=== PATIENT | male | born 1955 | race Caucasian/White ===

== ENCOUNTER 2023-12-30 14:37 | Outpatient (OUT) | payer MEDICARE, SELFPAY ==
[2023-12-30 15:18] LABS: Basophils Absolute Auto 0.1 10^3/uL (0.0-0.1); Eosinophils Absolute Auto 0.2 10^3/uL (0.0-0.7); Eosinophils Percent Auto 2.7 % (0.9-7.0); Hematocrit 42.7 % (42.0-54.0); Hemoglobin 14.9 g/dL (14.0-18.0); Immature Granulocytes Abs Auto 0.02 10^3/uL (0.00-0.03); Immature Granulocytes Pct Auto 0.3 % (0.0-0.5); Lymphocytes Absolute Auto 1.9 10^3/uL (1.2-3.8); Lymphocytes Percent Auto 29.6 % (20.5-60.0); Mean Corpuscular HGB Conc 34.9 g/dL (29.9-35.2); Mean Corpuscular Hemoglobin 29.5 pg (25.9-34.0); Mean Corpuscular Volume 84.6 fL (80.0-94.0); Mean Platelet Volume 11.2 fL (9.5-13.5); Monocytes Absolute Auto 0.5 10^3/uL (0.3-0.8); Monocytes Percent Auto 7.8 % (1.7-12.0); Neutrophils Absolute Auto 3.7 10^3/uL (1.4-6.5); Neutrophils Percent Auto 58.6 % (43.0-75.0); Platelet Count 218 10^3/uL (150-450); Red Blood Count 5.05 10^6/uL (4.70-6.10); Red Cell Distribution Width 12.9 % (11.0-15.0); White Blood Count 6.3 10^3/uL (4.0-11.0)
[2023-12-30 16:17] LABS: Alanine Aminotransferase 30 U/L (16-63); Albumin Level 3.9 g/dL (3.4-5.0); Alkaline Phosphatase 82 U/L (46-116); Anion Gap 12.3; Aspartate Amino Transferase 22 U/L (15-37); BUN Creatinine Ratio 21.5; Bilirubin Total 0.8 mg/dL (0.2-1.0); Calcium 9.4 mg/dL (8.5-10.1); Carbon Dioxide 26.4 mmol/L (21.0-32.0); Chloride 104 mmol/L (98-107); Chol HDL Ratio 3.6; Cholesterol 175 mg/dL (<=200); Estimated GFR (African America >60 (>=60); Estimated GFR (Non-African Ame >60 (>=60); Free T3 2.91 pg/mL (2.18-3.98); Globulin 3.9 g/dL; Glucose 103 mg/dL (74-106); HDL Cholesterol 48 mg/dL (40-60); Potassium 3.7 mmol/L (3.5-5.1); Sodium 139 mmol/L (136-145); Thyroid Stimulating Hormone 0.634 uIU/mL (0.358-3.740); Total Protein 7.8 g/dL (6.4-8.2); Triglycerides 110 mg/dL (<=150)
[2023-12-30 16:48] LABS: Free T4 1.27 ng/dL (0.76-1.46)
== END 2023-12-30 14:38 | disposition home or self-care (01) ==
LOC: LAB 14:41
PROVIDERS: PCP Nurse Practitioner; Visit Provider Nurse Practitioner
DX: E78.2 Mixed hyperlipidemia (principal); K21.9 Gastro-esophageal reflux disease without esophagitis; I10 Essential (primary) hypertension; E03.9 Hypothyroidism, unspecified
CPT/HCPCS: 36415; 80053; 80061; 82043; 82570; 84439; 84443; 84481; 85025

== ENCOUNTER 2023-12-31 15:05 | Outpatient (REF) | payer MEDICARE, SELFPAY ==
[2023-12-31 15:17] LABS: Bilirubin Urine NEGATIVE (NEGATIVE); Blood Urine NEGATIVE (NEGATIVE); Clarity Urine CLEAR (CLEAR); Color Urine YELLOW (YELLOW); Glucose Urine UA NEGATIVE (NEGATIVE); Ketones Urine NEGATIVE (NEGATIVE); Leukocyte Esterase Urine TRACE (NEGATIVE); Nitrite Urine NEGATIVE (NEGATIVE); Protein Urine NEGATIVE (NEG/TRACE); Specific Gravity Urine >=1.030 (1.005-1.025)
[2023-12-31 15:21] LABS: Urine Microscopic Indicated YES
[2023-12-31 15:23] LABS: Bacteria Urine TRACE #/HPF (NONE SEEN); Mucus Urine LARGE (NONE SEEN); RBC Urine NONE SEEN #/HPF (0-2); Squamous Epithelial Cell Urine FEW #/LPF (NONE/RARE)
[2023-12-31 15:24] LABS: Urine Culture Indicated YES
[2023-12-31 15:25] LABS: Creatinine Urine Random 236.72 mg/dL (20.00-300.00); Microalbum Creatinine Ratio Ur 7.1 mg/g (0.0-29.9); Microalbumin Urine Random 1.7 mg/dL (<=30.0)
== END 2023-12-31 15:06 | disposition home or self-care (01) ==
LOC: LAB 15:05
PROVIDERS: PCP Nurse Practitioner; Visit Provider Nurse Practitioner
DX: E78.2 Mixed hyperlipidemia (principal); K21.9 Gastro-esophageal reflux disease without esophagitis; I10 Essential (primary) hypertension; E03.9 Hypothyroidism, unspecified; R82.998 Other abnormal findings in urine
CPT/HCPCS: 81001; 82043; 82570; 87086

== ENCOUNTER 2025-01-21 14:48 | Outpatient (OUT) | payer MEDICARE, MEDICAID, SELFPAY ==
--- OUTSIDE RECORDS SUMMARY | 2025-01-21 14:53 | XMS_ITS | Clinical Summary ---
Author Organization [employer] tem Address [id number] [address] [place] [address] Care Team Providers Care All Round Logger Name Role Phone GracecalindanielJoie lowe Waleska GRANGER-CENTERLESS GRINDER OPERATOR Primary Care Provider Allergies Active Allergy Reactions Criticality Noted Date Comments Milk Containing Products (Dairy) Medications levothyroxine (SYNTHROID, LEVOTHROID) 50 MCG tablet 10/18/2016 Active pantoprazole (PROTONIX) 40 mg EC tablet 10/18/2016 Active pravastatin (PRAVACHOL) 20 mg tablet 10/18/2016 Active valsartan-hydrochl orothiazide (DIOVAN-HCT) 160-12.5 mg per tablet 10/18/2016 Active naproxen (NAPROSYN) 375 mg tablet 07/20/2019 Active meloxicam (MOBIC) 15 mg tablet 09/09/2019 Active Active Problems Problem Noted Date Diagnosed Date Elevated PSA 11/06/2016 Overview (06/09/2024): Elevated PSA with negative biopsy 2012 (PSA 4.77) 3 T prostate MRI 05/04 with PI-RADS 2 lesion (PSA 6.3) - vol 45 cc PSA stable, no nodules. Recheck next year Family History Medical History Relation Name Comments No Known Problems Mother Relation Name Status Comments Mother Alive Social History Tobacco Use Types Packs/Day Years Used Date Smoking Tobacco: Former Smokeless Tobacco: Never Tobacco Cessation:Counseling Given: Not Answered Alcohol Use Standard Drinks/Week Comments No 0 (1 standard drink = 0.6 oz pur e alcohol) Childcare Answer Date Recorded Childcare Unknown 01/19/2019 Employment Answer Date Recorded Employment Unknown 01/19/2019 Hunger Screening Answer Date Recorded Within the past 12 months we worried whether our food would run out before we got money to buy more. Never True 06/09/2024 Within the past 12 months th e food we bought just didn't last and we didn't have money to get more. Never True 06/09/2024 Purpose - Life Answer Date Recorded Purpose and direction in life Unknown Sex and Gender Information Value Date Recorded Sex Assigned at Not on file Legal Sex Male 9:23 AM EST Gender Identity Not on file Sexual Orientation Not on file Last Filed Vital Signs Vital Sign Reading Time Taken Comments Blood Pressure 143/98 06/09/2024 10:43 AM EDT Pulse 71 06/09/2024 10:43 AM EDT Temperature - - Respiratory Rate 18 05/09/2021 11:36 AM EDT Oxygen Saturation - - Inhaled Oxygen Concentration - - Weight 74.8 kg (165 lb) 06/09/2024 10:43 AM EDT Height 177.8 cm (5' 10 ) 06/09/2024 10:43 AM EDT Body Mass Index 23.68 06/09/2024 10:43 AM EDT Plan of Treatment Upcoming Encounters Date Type Department Care Team (Late st Contact Info) Description 06/08/2025 1:15 PM EDT Office Visit [facility] [address] [place] [address] [place] [address] Rustam Youssef MD [address] [place] [address] [id number] Health Maintenance Due Date Last Done Comments Depression Screening 1968 DTaP,Tdap and Td Vaccines (1 - Tdap) 1975 Zoster (Shingles) Vaccine (1 of 2) 2006 Abdominal Aortic Aneurysm (A AA) Screen 2021 Fall Risk Screening 2021 Influenza Vaccine 04/19/2025 06/02/2022, , 06/01/2019, Additional history exists Adult BMI Screening 06/09/2025 06/09/2024 Tobacco Screening 06/09/2025 06/09/2024 Medical Devices Not on file Insurance [facility] MEDICAID [place] Care Teams All Round Logger Relationship Specialty Start Date End Date Joie Lane, PHYSICIAN PRACTICE MANAGER-CENTERLESS GRINDER OPERATOR PCP - General Nurse Practitioner 11/26/17
--- OUTSIDE RECORDS SUMMARY | 2025-01-21 14:54 | XMS_ITS | Encounter Summary ---
Author Organization [employer] tem Address [facility] [id number] [address] [place] [address] Care Team Providers Care Workers Compensation Claims Specialist Name Role Phone GraceJoie mann Waleska HAYESN-DATA MINING ANALYST Primary Care Provider Encounter Details Date Type Department Care Team (Late Contact Info) Description 05/12/2021 Abstract [facility] [address] [place] [phone] External, Scanning Provider Social History Tobacco Use Types Packs/Day Years Used Date Smoking Tobacco: Former Smokeless Tobacco: Never Alcohol Use Standard Drinks/Week Comments No 0 (1 standard drink = 0.6 oz pur e alcohol) Childcare Answer Date Recorded Childcare Unknown 01/19/2019 Employment Answer Date Recorded Employment Unknown 01/19/2019 Purpose - Life Answer Date Recorded Purpose and direction in life Unknown Sex and Gender Information Value Date Recorded Sex Assigned at Not on file Legal Sex Male 9:23 AM EST Gender Identity Not on file Sexual Orientation Not on file COVID-19 Exposure Response Date Recorded In the last month, have you been in contact with someone who was confirmed or suspected to have Coronavirus / COVID-19? No / Unsure 05/09/2021 11:30 AM EDT documented as of this encounter Plan of Treatment Upcoming Encounters Date Type Department Care Team (Late Contact Info) Description 06/08/2025 1:15 PM EDT Office Visit [facility] [address] [place] [address] [place] [address] [address] Rustam Youssef MD [address] [place] [id number] documented as of this encounter Procedures Procedure Name Priority Date/Time Associated Diagnosis Comments PROSTATIC SPECIFIC ANTIGEN, DIAGNOSTIC Routine 05/04/2021 documented in this encounter Results * Prostatic specific antigen, diagnostic (05/04/2021) Psa 5.49 MANUALLY TRANSCRIBED RESULTS 05/04/2021 us Scanning Provider External LAB BLOOD ORDERABLES Final Result MANUALLY TRANSCRIBED RESULTS documented in this encounter Visit Diagnoses Not on filedocumented in this encounter Care Teams Workers Compensation Claims Specialist Relationship Specialty Start Date End Date Joie Lane, TELLER HEAD-DATA MINING ANALYST PCP - General Nurse Practitioner 11/26/17 documented as of this encounter
--- OUTSIDE RECORDS SUMMARY | 2025-01-21 14:54 | XMS_ITS | Encounter Summary ---
Author Organization [employer] tem Address [facility] [id number] [address] [place] [address] Care Team Providers Care System Planning Engineer Name Role Phone Joie Lane CREDIT RISK ASSOCIATE-ROAD TESTER Primary Care Provider Encounter Details Date Type Department Care Team (Late Contact Info) Description 05/12/2021 Orders Only [facility] [address] [place] [phone] Joie Negron Elevated PSA Social History Tobacco Use Types Packs/Day Years [...] Office Visit [facility] [address] [place] [address] [address] [facility] [place] [address] Rustam Youssef MD [address] [place] [address] documented as of this encounter Visit Diagnoses Diagnosis Elevated PSA Elevated prostate specific antigen (PSA) documented in this encounter Care Teams System Planning Engineer Relationship Specialty Start Date End Date Joie Lane, CREDIT RISK ASSOCIATE-ROAD TESTER PCP - General Nurse Practitioner 11/26/17 documented as of this encounter
--- OUTSIDE RECORDS SUMMARY | 2025-01-21 14:54 | XMS_ITS | Encounter Summary ---
Author Organization [employer] tem Address [facility] [id number] [address] [place] [address] Care Team Providers Care Electrotyper Name Role Phone GraceJoie mann Waleska METAL BUILDING ASSEMBLER-ORTHOPEDIC BRACE MAKER Primary Care Provider Encounter Details Date Type Department Care Team (Late st Contact Info) Description 11/29/2022 Abstract [facility] [place] [phone] External, Scanning Provider Social History Tobacco Use [...] on file Sexual Orientation Not on file documented as of this encounter Plan of Treatment Upcoming Encounters Date Type Department Care Team (Late st Contact Info) Description 06/08/2025 1:15 PM EDT Office Visit [facility] [address] [place] [address] [place] [address] [phone] Rustam Youssef MD [address] [place] [address] documented as of this encounter Procedures Procedure Name Priority Date/Time Associated Diagnosis Comments MULTIPLE LABS Routine 11/13/2022 documented in this encounter Results * Multiple labs (11/13/2022) 11/13/2022 us Scanning Provider External AL IMAGING Final Result MANUALLY TRANSCRIBED RESULTS documented in this encounter Visit Diagnoses Not on filedocumented in this encounter Care Teams Electrotyper Relationship Specialty Start Date End Date Joie Lane, METAL BUILDING ASSEMBLER-ORTHOPEDIC BRACE MAKER PCP - General Nurse Practitioner 11/26/17 documented as of this encounter
--- OUTSIDE RECORDS SUMMARY | 2025-01-21 14:54 | XMS_ITS | Clinical Summary ---
Author Organization [facility] Address [address] [place] [address] Care Team Providers Care Picture Booker Name Role Phone Joie Lane NP Unavailable [phone] Azael Skinner MD Primary Care Provider [phone] NP Unavailable [phone] NP Unavailable [phone] Allergies Active Allergy Reactions Criticality Noted Date Comments Milk-Related Compounds GI intolerance Medium 4 Dairy products-nausea, vomiting, and diarrhea Other 11/12/2016 Medications pantoprazole (ProtoNix) 40 MG EC tabletIndications :Gastroesophageal reflux disease without esophagitis Take 1 tablet (40 mg) by mouth Daily as needed (acid reflux) 90 tablet 1 07/06/20 24 Active levothyroxine (Synthroid, Levoxyl) 50 MCG tabletIndications :Hypothyroidism, unspecified,Hypot hyroidism (CMS/HCC) Take 1 tablet (50 mcg) by mouth in the morning. Take before meals. 90 tablet 01/05/20 25 025 Active valsartan-hydroCH LOROthiazide (Diovan-HCT) 160-12.5 MG tabletIndications :Essential (primary) hypertension (CMS/HCC),Essenti al hypertension (CMS/HCC) Take 1 tablet by mouth Daily 90 tablet 1 01/05/20 25 025 Active pravastatin (Pravachol) 20 MG tabletIndications :Mixed hyperlipidemia (CMS/HCC) Take 1 tablet (20 mg) by mouth at bedtime 90 tablet 1 01/05/20 25 025 Active meloxicam (Mobic) 15 MG tabletIndications :Pain in left knee,Pain in unspecified knee Take 1 tablet (15 mg) by mouth Daily as needed for moderate pain 90 tablet 01/05/20 25 025 Active levothyroxine (Synthroid, Levoxyl) 50 MCG tabletIndications :Hypothyroidism, unspecified,Hypot hyroidism (CMS/HCC) Take 1 tablet (50 mcg) by mouth in the morning. Take before meals. 90 tablet 1 07/06/20 24 025 Discontinued pravastatin (Pravachol) 20 MG tabletIndications :Mixed hyperlipidemia (CMS/HCC) Take 1 tablet (20 mg) by mouth at bedtime 90 tablet 1 07/06/20 24 025 Discontinued(R eorder) valsartan-hydroCH LOROthiazide (Diovan-HCT) 160-12.5 MG tabletIndications :Essential (primary) hypertension (CMS/HCC),Essenti al hypertension (CMS/HCC) Take 1 tablet by mouth Daily 90 tablet 1 07/06/20 24 025 Discontinued(R eorder) meloxicam (Mobic) 15 MG tabletIndications :Pain in left knee,Pain in unspecified knee Take 1 tablet (15 mg) by mouth Daily as needed for moderate pain 90 tablet 07/13/20 025 Discontinued meloxicam (Mobic) 15 MG tabletIndications :Pain in left knee,Pain in unspecified knee Take 1 tablet (15 mg) by mouth Daily as needed for moderate pain 90 tablet 12/31/19 025 Discontinued(R eorder) Active Problems Problem Noted Date Diagnosed Date Encounter for subsequent [facility] visit (AWV) in Medicare patient 07/06/2024 Assessment & Plan (07/06/2024 3:01 PM EST): Reviewed Ht/Wt/BMI Recommend eye exam yearly Recommend dental exams twice a year Balance work/leisure activities Exercises is recommended most days of the week (appropriate as chronic conditions allow) Follow up yearly and prn Hand out on HCPOA and Living will Essential hypertension, benign 12/30/2023 Assessment & Plan (01/04/2025 7:26 AM EDT): Please check blood pressure daily and record DASH diet Limit caffeine Take medication as directed Contact office if chest pain, pressure, dizziness, shortness of breath, swelling legs Recommend slow position changes Current meds; valsartan/hydrochlorothiazide Assessment & Plan (07/06/2024 7:22 AM EST): Please check blood pressure daily and record DASH diet Limit caffeine Take medication as directed Contact office if chest pain, pressure, dizziness, shortness of breath, swelling legs Recommend slow position changes Assessment & Plan (12/30/2023 2:26 PM EDT): Stable, no changes in doses Check labs Fatigue 12/30/2023 Gastroesophageal reflux disease without esophagi tis 12/30/2023 Assessment & Plan (01/04/2025 7:27 AM EDT): Recommendations: freq small meals, nothing to eat or drink at least 2 hours prior to bed, limit caffeine, alcohol, as well as spicy foods Meds to limit or avoid if possible: NSAIDS Elevate HOB if possible Current med; pantoprazole Can try to take every other day if tolerates Assessment & Plan (07/06/2024 7:23 AM EST): Recommendations: freq small meals, nothing to eat or drink at least 2 hours prior to bed, limit caffeine, alcohol, as well as spicy foods Meds to limit or avoid if possible: NSAIDS Elevate HOB if possible Continue PPI Assessment & Plan (12/30/2023 2:26 PM EDT): Uses prn PPI Mixed hyperlipidemia 12/30/2023 Assessment & Plan (01/04/2025 7:28 AM EDT): Continue statin therapy Check labs yearly and prn dose changes Assessment & Plan (07/06/2024 2:53 PM EST): Continue statin Primary hypothyroidism 12/30/2023 Assessment & Plan (01/04/2025 7:27 AM EDT): Current meds: levothyroxine Check labs yearly and prn dose changes or changes in sxs Assessment & Plan (07/06/2024 3:05 PM EST): Has noted some sl fatigue, nothing acute, I did offer to order thyroid labs, he decline, however if he changes his mind he can contact the office. Continue with thyroid medications and periodic lab monitoring Assessment & Plan (12/30/2023 2:26 PM EDT): Continue with levo, check labs to ensure current dose is adequate Colon cancer screening 12/30/2023 Elevated PSA 11/06/2016 Overview (12/30/2023): Elevated PSA with negative biopsy 2012 (PSA 4.77) 3 T prostate MRI 05/04 with PI-RADS 2 lesion (PSA 6.3) - vol 45 cc 11/11/18: PSA 5.56, benign exam. Given his prior workup that was negative, we are going to recheck his psa in the short term to see if this is his typical fluctuation vs a new rise. 09/15/19: Plan recheck prostate health index today. 04/26/20: PSA 4.08. His PSA has fluctuated and currently better. Normal for his age still. Plan recheck 1 year 05/09/21: PSA stable at 5.49. Normal exam. Recheck 1 year 11/07: PSA 4.8 11/08 PSA 4.9 Normal exam. Recheck 1 year Assessment & Plan (07/06/2024 7:23 AM EST): Continue with Urology Encounters Date Type Department Care Team Description 01/04/2025 1:40 PM EDT Office Visit [facility] [address] [place] [address] NP Essential hypertension, benign (CMS/HCC) (Primary Dx); Gastroesophageal reflux disease without esophagitis; Primary hypothyroidism (CMS/HCC); Mixed hyperlipidemia (CMS/HCC); Essential (primary) hypertension (CMS/HCC); Essential hypertension (CMS/HCC); Hypothyroidism, unspecified; Hypothyroidism (CMS/HCC); Pain in left knee; Pain in unspecified knee 01/02/2025 Refill [facility] [address] [place] [address] NP Hypothyroidism, unspecified; Hypothyroidism ([facility]/HCC) 12/30/2024 Refill [facility] [address] [place] [address] NP Pain in left knee; Pain in unspecified knee from Last 3 Months Immunizations Immunization Administration Dates Next Due Influenza, High Dose Seasonal, Preservative Free 05/04/2024 Influenza, High-dose Seasona l, Quadrivalent, Preservative Free 06/02/2022 Influenza, injectable, MDCK, preservative free, quadrivalent 2018 Influenza, injectable, MDCK, quadrivalent 2019 Influenza, injectable, quadrivalent, preservativ e free 06/01/2019 Pneumococcal Conjugate PCV 13 06/04/2020 Pneumococcal Polysaccharide PPSV23 10/13/2022 Family History Medical History Relation Name Comments Lung cancer Father Lung cancer Mother Relation Name Status Comments Father Mother Social History Tobacco Use Types Packs/Day Years Used Date Smoking Tobacco: Never Smokeless Tobacco: Never Tobacco Cessation:Counseling Given: Not Answered Alcohol Use Standard Drinks/Week Comments Never 0 (1 standard drink = 0.6 oz pur e alcohol) no caffine Social Connection and Isolat ion Panel [NHANES] Answer Date Recorded Frequency of Communication w ith Friends and Family Not on file 12/24/2023 How often do you get togethe r with friends or relatives? More than three times a week 12/24/2023 How often do you attend chur ch or oriental orthodox services? More than 4 times per year 12/24/2023 Do you belong to any clubs o r organizations such as baptist groups, unions, fraternal or athletic groups, or school groups? No 12/24/2023 How often do you attend meet ings of the clubs or organizations you belong to? Patient declined 12/24/2023 Are you , , di vorced, , never , or living with a partner? Never 12/24/2023 AUDIT-C Answer Date Recorded Q1: How often do you have a drink containing alc ohol? Never 12/24/2023 Average Number of Drinks Not on file 024 Q3: How often do you have si x or more drinks on one occasion? Never 12/24/2023 PHQ-2 Answer Date Recorded Patient Health Questionnaire-2 Score 0 07/06/2024 [facility] - Occupational Stress Questionnaire Answer Date Recorded Do you feel stress - tense, restless, nervous, or anxious, or unable to sleep at night because your mind is troubled all the time - these days? Patient declined 12/24/2023 Exercise Vital Sign Answer Date Recorde d On average, how many days pe r week do you engage in moderate to strenuous exercise (like a brisk walk)? 6 days Minutes of Exercise per Session Not on file 12/24/2023 Hunger Vital Sign Answer Date Recorded Within the past 12 months, y ou worried that your food would run out before you got the money to buy more. Never true 12/24/19 24 Within the past 12 months, t he food you bought just didn't last and you didn't have money to get more. Never true 12/24/2023 PRAPARE - Transportation Answer Date Re corded In the past 12 months, has l ack of transportation kept you from medical appointments or from getting medications? No 02/2024 In the past 12 months, has l ack of transportation kept you from meetings, work, or from getting things needed for daily living? No 12/24/2023 Housing Stability Vital Sign Answer Simon e Recorded In the last 12 months, was t here a time when you were not able to pay the mortgage or rent on time? No 12/24/2023 Number of Places Lived in the Last Year Not on f ile 12/24/2023 In the last 12 months, was t here a time when you did not have a steady place to sleep or slept in a correction (including now)? No 12/24/2023 Sex and Gender Information Value Date Recorded Sex Assigned at Not on file Legal Sex Male 11:17 AM EDT Gender Identity Not on file Sexual Orientation Not on file Last Filed Vital Signs Vital Sign Reading Time Taken Comments Blood Pressure 108/76 01/04/2025 1:38 PM EDT Pulse 72 01/04/2025 1:38 PM EDT Temperature 36.7 C (98.1 F) 01/04/2025 1:38 PM EDT Respiratory Rate 18 01/04/2025 1:38 PM EDT Oxygen Saturation 97% 01/04/2025 1:38 PM EDT Inhaled Oxygen Concentration - - Weight 77.2 kg (170 lb 3.2 oz) 01/04/2025 1:38 P M EDT Height 177.8 cm (5' 10 ) 07/06/2024 2:26 PM EST Body Mass Index 24.42 07/06/2024 2:26 PM EST Plan of Treatment Upcoming Encounters Date Type Department Care Team (Late st Contact Info) Description 07/07/2025 4:30 PM EST Office Visit [facility] [address] [place] [address] NP [address] [place] [address] Health Maintenance Due Date Last Done Comments CT Colonography 1955 Colonoscopy 1955 FIT 1956 FOBT 1955 Sigmoidoscopy 1955 Medicare Annual Wellness (AWV) 07/06/2025 07/06/2024 Colorectal Cancer Screening 01/03/2027 FIT-DNA 01/03/2027 01/04/2024 Pneumococcal Vaccine: 65+ Years Completed , 06/04/2020 Influenza Vaccine Completed 05/04/2024, , 05/14/2020, Additional history exists Procedures Procedure Name Priority Date/Time Associated Diagnosis Comments LAB COLOGUARD COLON CANCER SCREEN Routine 01/04/2024 2:40 PM EDT Colon cancer screening from Last 3 Months or Most Recently Relevant to Health Maintenance Results * Cologuard?? colon cancer screening (01/04/2024 2:40 PM EDT) NONINV COLON CA DNA+OCC BLD SCRN STL-IMP Negative Negative 01/13/2024 7:35 PM EDT [facility] (CLIA #:[id number]) Comment: NEGATIVE TEST RESULT. A negative Cologuard result indicates a low likelihood that a colorectal cancer (CRC) or advanced adenoma (adenomatous polyps with more advanced pre-malignant features) is present. The chance that a person with a negative Cologuard test has a colorectal cancer is less than 1 in 1500 (negative predictive value >99.9%) or has an advanced adenoma is less than 5.3% (negative predictive value 94.7%). These data are based on a prospective cross-sectional study of 10,000 individuals at average risk for colorectal cancer who were screened with both Cologuard and colonoscopy. (Dena Durand al, N Engl J Med 2014;370(14):1282-1291) The normal value (reference range) for this assay is negative. COLOGUARD RE-SCREENING RECOMMENDATION: Periodic colorectal cancer screening is an important part of preventive healthcare for asymptomatic individuals at average risk for colorectal cancer. Following a negative Cologuard result, the [place] Cancer Society and U.S. Multi-Society Task Force screening guidelines recommend a Cologuard re-screening interval of 3 years. References: [place] Cancer Society Guideline for Colorectal Cancer Screening: https://www.cancer.org/cancer/bsdik-jcaauw-xjatje/xtsobthkm-nshynmukh-htjnnff/ac s-rec ommendations.html.; Erick DK, Delvin CR, Jarrett GaleanoK, Colorectal Cancer Screening: Recommendations for Physicians and Patients from the U.S. Multi-Society Task Force on Colorectal Cancer Screening , Am J Gastroenterology 2017; 112:3668-7596. TEST DESCRIPTION: Composite algorithmic analysis of stool DNA-biomarkers with hemoglobin immunoassay. Quantitative values of individual biomarkers are not reportable and are not associated with individual biomarker result reference ranges. Cologuard is intended for colorectal cancer screening of adults of either sex, 45 years or older, who are at average-risk for colorectal cancer (CRC). Cologuard has been approved for use by the U.S. FDA. The performance of Cologuard was established in a cross sectional study of average-risk adults aged 50-84. Cologuard performance in patients ages 45 to 49 years was estimated by sub-group analysis of near-age groups. Colonoscopies performed for a positive result may find as the most clinically significant lesion: colorectal cancer [4.0%], advanced adenoma (including sessile serrated polyps greater than or equal to 1cm diameter) [20%] or non- advanced adenoma [31%]; or no colorectal neoplasia [45%]. These estimates are derived from a prospective cross-sectional screening study of 10,000 individuals at average risk for colorectal cancer who were screened with both Cologuard and colonoscopy. (Dena Durand al, N Engl J Med 2014;370(14):1691-1481.) Cologuard may produce a false negative or false positive result (no colorectal cancer or precancerous polyp present at colonoscopy follow up). A negative Cologuard test result does not guarantee the absence of CRC or advanced adenoma (pre-cancer). The current Cologuard screening interval is every 3 years. ([place] Cancer Society and U.S. Multi-Society Task Force). Cologuard performance data in a 10,000 patient pivotal study using colonoscopy as the reference method can be accessed at the following location: www.[employer].com/results. Additional description of the Cologuard test process, warnings and precautions can be found at www.[employer].com. Stool specimen (specimen) 01/04/2024 2:40 PM EDT 01/07/2024 11:[address] MANAGER PRODUCT SUPPORT LAB MOLECULAR DIAGNOSTICS ORDER MARY Final Result .[facility] (CLIA #:[id number]) [address] [id number], [facility] (CLIA #:[id number]) [address] [id number] from Last 3 Months or Most Recently Relevant to Health Maintenance Insurance MEDICAID [place] MEDICARE ADVANTAGE Care Teams Picture Booker Relationship Specialty Start Date End Date Azael Skinner MD [address] [place] [phone] PCP - General Family Medicine 01/14/[address] NP [address] [place] [address] PCP - Obi JON 08/19/[address] NP [address] [place] [address] Nurse Practitioner Family Medicine 08/19/[address] NP [address] [place] [address] Nurse Practitioner Family Medicine 01/14/24
--- OUTSIDE RECORDS SUMMARY | 2025-01-21 14:54 | XMS_ITS | Encounter Summary ---
Author Organization [facility] Address [id number] [address] [place] [address] Care Team Providers Care Cattle Examiner Name Role Phone GraceJoie mann Waleska DIRECTOR OF RESIDENCE [employer]-GREEN MARKETING SPECIALIST Primary Care Provider Encounter Details Date Type Department Care Team (Late Contact Info) Description 05/03/2023 Telephone [facility] [address] [place] [address] Medina Barrera, JEFFERY Social History Tobacco Use Types Packs/Day Years [...] got money to buy more. Never True 05/07/2023 Within the past 12 months th e food we bought just didn't last and we didn't have money to get more. Never True 05/07/2023 Purpose - Life Answer Date Recorded Purpose and direction in life Unknown Sex and Gender Information Value Date Recorded Sex Assigned at Not on file Legal Sex Male 9:23 AM EST Gender Identity Not on file Sexual Orientation Not on file documented as of this encounter Plan of Treatment Upcoming Encounters Date Type Department Care Team ([facility] Contact Info) Description 06/08/2025 1:15 PM EDT Office Visit [facility] [address] [place] [address] [place] [address] [place] [address] Rustam Youssef MD [facility] [place] [address] documented as of this encounter Visit Diagnoses Not on filedocumented in this encounter Care Teams Cattle Examiner Relationship Specialty Start Date End Date Joie Lane, DIRECTOR OF [employer]ID[employer]EN MARKETING SPECIALIST PCP - General Nurse Practitioner 11/26/17 documented as of this encounter
--- OUTSIDE RECORDS SUMMARY | 2025-01-21 14:54 | XMS_ITS | Encounter Summary ---
Author Organization [facility] Address [address] [place] [address] Care Team Providers Care Clockmaker Apprentice Name Role Phone Joie Lane MUSIC ARRANGER Unavailable [phone] Azael Skinner MD Primary Care Provider Joie Lane MUSIC ARRANGER Unavailable [phone] NP Unavailable [phone] Reason for Visit * Reason Comments Med Refill Encounter Details Date Type Department Care Team (Late st Contact Info) Description 05/04/2024 Refill [facility] [address] [place] [address] MUSIC ARRANGER [address] [place] [address] Gastroesophageal reflux disease without esophagitis Social History Tobacco Use Types Packs/Day Years Used Date Smoking Tobacco: Never Smokeless Tobacco: Never Alcohol Use Standard Drinks/Week Comments Never 0 [...] often do you attend chur ch or cheondoism services? More than 4 times per year 12/24/2023 Do you belong to any clubs o r organizations such as mormonism groups, unions, fraternal or athletic groups, or [...] Date Recorded Patient Health Questionnaire-2 Score 0 12/30/2023 [facility] - Occupational Stress Questionnaire Answer Date Recorded [...] place to sleep or slept in a jail (including now)? No 12/24/2023 Sex and Gender Information Value Date Recorded Sex Assigned at Not on file Legal Sex Male 11:17 AM EDT Gender Identity Not on file Sexual Orientation Not on file documented as of this encounter Plan of Treatment Upcoming Encounters Date Type Department Care Team (Late st Contact Info) Description 07/07/2025 4:30 PM EST Office Visit [facility] [address] [place] [phone] Joie [address] NP [address] [place] [address] documented as of this encounter Visit Diagnoses Diagnosis Gastroesophageal reflux disease without esophagitis Esophageal reflux documented in this encounter Care Teams Clockmaker Apprentice Relationship Specialty Start Date End Date Azael Skinner MD [address] [place] [address] PCP - General Family Medicine 01/14/[address] NP [address] [place] [phone] PCP - Obi JON 08/19/[address] NP [address] [place] [address] Nurse Practitioner Family Medicine 08/19/[address] NP [address] [place] [address] Nurse Practitioner Family Medicine 01/14/24 documented as of this encounter
[2025-01-21 15:22] LABS: Basophils Percent Auto 0.7 % (0.2-2.0); Eosinophils Absolute Auto 0.2 10^3/uL (0.0-0.7); Eosinophils Percent Auto 2.6 % (0.9-7.0); Hematocrit 42.9 % (42.0-54.0); Immature Granulocytes Abs Auto 0.01 10^3/uL (0.00-0.03); Immature Granulocytes Pct Auto 0.2 % (0.0-0.5); Lymphocytes Absolute Auto 1.8 10^3/uL (1.2-3.8); Lymphocytes Percent Auto 30.3 % (20.5-60.0); Mean Corpuscular Hemoglobin 29.5 pg (25.9-34.0); Mean Corpuscular Volume 84.3 fL (80.0-94.0); Mean Platelet Volume 10.4 fL (9.5-13.5); Monocytes Absolute Auto 0.7 10^3/uL (0.3-0.8); Monocytes Percent Auto 11.4 % (1.7-12.0); Neutrophils Absolute Auto 3.2 10^3/uL (1.4-6.5); Neutrophils Percent Auto 54.8 % (43.0-75.0); Platelet Count 205 10^3/uL (150-450); Red Blood Count 5.09 10^6/uL (4.70-6.10); White Blood Count 5.8 10^3/uL (4.0-11.0)
[2025-01-21 16:12] LABS: Alanine Aminotransferase 34 U/L (16-63); Albumin Level 3.7 g/dL (3.4-5.0); Alkaline Phosphatase 106 U/L (46-116); Anion Gap 8.9; Aspartate Amino Transferase 26 U/L (15-37); Bilirubin Total 0.9 mg/dL (0.2-1.0); Calcium 9.4 mg/dL (8.5-10.1); Carbon Dioxide 31.7 mmol/L (21.0-32.0); Chloride 103 mmol/L (98-107); Chol HDL Ratio 3.6; Cholesterol 174 mg/dL (<=200); Estimated GFR (African America >60 (>=60 mL/min/1.73m^2); Estimated GFR (Non-African Ame >60 (>=60 mL/min/1.73m^2); Free T3 2.68 pg/mL (2.18-3.98); Globulin 3.8 g/dL; Glucose 96 mg/dL (74-106); HDL Cholesterol 48 mg/dL (40-60); LDL Cholesterol Calculated 103.2 mg/dL; Potassium 3.6 mmol/L (3.5-5.1); Sodium 140 mmol/L (136-145); Thyroid Stimulating Hormone 0.547 uIU/mL (0.358-3.740); Total Protein 7.5 g/dL (6.4-8.2); Triglycerides 114 mg/dL (<=150); VLDL CHOLESTEROL 22.8 mg/dL
== END 2025-01-21 14:49 | disposition home or self-care (01) ==
PROVIDERS: PCP Nurse Practitioner; Visit Provider Nurse Practitioner
DX: E03.9 Hypothyroidism, unspecified (principal); I10 Essential (primary) hypertension; K21.9 Gastro-esophageal reflux disease without esophagitis; E78.2 Mixed hyperlipidemia
CPT/HCPCS: 36415; 80053; 80061; 82043; 82570; 84439; 84443; 84481; 85025

== ENCOUNTER 2025-01-22 08:28 | Outpatient (REF) | payer MEDICARE, MEDICAID, SELFPAY ==
--- OUTSIDE RECORDS SUMMARY | 2025-01-22 08:30 | XMS_ITS | Encounter Summary ---
Author Organization [facility] Address [address] [place] [address] Care Team Providers Care Packing Clerk Name Role Phone Joie Lane NP Unavailable [phone] Azael Skinner MD Primary Care Provider Joie Lane NP Unavailable [phone] NP Unavailable [phone] Encounter Details Date Type Department Care Team (Late st Contact Info) Description 01/21/2025 Clinisync Result Encounter [facility] External Department Unsolicited Joie Lane, WOOD DRILLING MACHINE OPERATOR [address] [place] [phone] Social History Tobacco Use Types Packs/Day Years [...] any clubs o r organizations such as baptism groups, unions, fraternal or athletic groups, or [...] Recorded Patient Health Questionnaire-2 Score 0 07/06/2024 [facility] - Occupational Stress [...] place to sleep or slept in a fpc (including now)? No 12/24/2023 Sex and Gender Information Value Date Recorded Sex Assigned at Not on file Legal Sex Male 11:17 AM EDT Gender Identity Not on file Sexual Orientation Not on file documented as of this encounter Plan of Treatment Upcoming Encounters Date Type Department Care Team (Late st Contact Info) Description 07/07/2025 4:30 PM EST Office Visit [facility] [address] [place] [address] NP [address] [place] [address] documented as of this encounter Procedures Procedure Name Priority Date/Time Associated Diagnosis Comments [facility] CMP (CMP) (FOR REMOTE [facility] USE) Routine 01/21/2025 3:09 PM EDT ALL THYROXINE (T4) FREE Routine 01/21/2025 3:09 PM EDT ALL THYROID STIM HORMONE Routine 01/21/2025 3:09 PM EDT ALL T3 FREE Routine 01/21/2025 3:09 PM EDT ALL LIPID PROFILE (FASTING) Routine 01/21/2025 3:09 PM EDT ALL CBC WITH AUTO DIFF Routine 01/21/2025 3:09 PM EDT documented in this encounter Results * ALL THYROID STIM HORMONE (01/21/2025 3:09 PM EDT) THYROID STIMULATING HORMONE 0.547 0.358 - 3.740 uIU/mL TBH 01/21/2025 3:09 PM EDT 01/21/2025 3:11 PM EDT Narrative CLINIS[facility] - 01/21/2025 4:[address] us Joie [address] NP [place] Final [facility] * ALL T3 FREE (01/21/2025 3:09 PM EDT) FREE T3 2.68 2.18 - 3.98 pg/mL TB 01/21/2025 3:09 PM EDT 01/21/2025 3:11 PM EDT Narrative CLINISYNC - 01/21/2025 4:[address] NP [facility] Final Result [facility] TB * ALL LIPID PROFILE (FASTING) (01/21/2025 3:09 PM EDT) TRIGLYCERIDES 114 <=150 mg/dL TBH CHOLESTEROL 174 <=200 mg/dL TBH HDL CHOLESTEROL 48 40 - 60 mg/dL TB Comment: > or =60 mg/dl - LOW CARDIOVASCULAR RISK <40 mg/dl - HIGH CARDIOVASCULAR RISK LDL CHOLESTEROL CALCULATED 103.2 mg/dL TB Comment: <100 mg/dl OPTIMAL 100-129 mg/dl NEAR OR ABOVE OPTIMAL 130-159 mg/dl BORDERLINE HIGH 160-189 mg/dl HIGH >190 mg/dl VERY HIGH VLDL CHOLESTEROL 22.8 mg/dL TB CHOL HDL RATIO 3.6 TB Comment: 3.3 - 4.4 LOW RISK 4.4 - 7.1 AVERAGE RISK 7.1 - 11.0 MODERATE RISK >11.0 HIGH RISK 01/21/2025 3:09 PM EDT 01/21/2025 3:11 PM EDT Narrative CLINISYNC - 01/21/2025 4:[address] NP [place] Final Result [facility] * (ABNORMAL) [facility] CMP (CMP) (FOR REMOTE [facility] USE) (01/21/2025 3:09 PM EDT) SODIUM 140 136 - 145 mmol/L TBH POTASSIUM 3.6 3.5 - 5.1 mmol/L TBH CHLORIDE 103 98 - 107 mmol/L TBH CARBON DIOXIDE 31.7 21.0 - 32.0 mmol/L TBH ANION GAP 8.9 TBH GLUCOSE 96 74 - 106 mg/dL TBH BLOOD UREA NITROGEN 24.0(H) 7.0 - 18.0 mg/dL TBH CREATININE 1.00 0.70 - 1.30 mg/dL TBH TBH EGFR-AF SYRIAN >60 >=60 mL/min/1. 73m 2 TBH TBH EGFR-NON AF SYRIAN >60 >=60 mL/min/1. 73m 2 TBH BUN CREATININE RATIO 24.0 TBH CALCIUM 9.4 8.5 - 10.1 mg/dL TBH BILIRUBIN TOTAL 0.9 0.2 - 1.0 mg/dL TBH ASPARTATE AMINO TRANSFERASE 26 15 - 37 U/L TBH ALANINE AMINOTRANSFERASE 34 16 - 63 U/L TBH ALKALINE PHOSPHATASE 106 46 - 116 U/L TBH TOTAL PROTEIN 7.5 6.4 - 8.2 g/dL TBH ALBUMIN LEVEL 3.7 3.4 - 5.0 g/dL TBH GLOBULIN 3.8 g/dL TBH ALBUMIN GLOBULIN RATIO 1.0 TBH 01/21/2025 3:09 PM EDT 01/21/2025 3:11 PM EDT Narrative CLINISYNC - 01/21/2025 4:[address] NP [facility] Final Result Performing Organization Address [facility] de Phone Number [facility] * ALL THYROXINE (T4) FREE (01/21/2025 3:09 PM EDT) FREE T4 1.30 0.76 - 1.46 ng/dL [facility] 01/21/2025 3:09 PM EDT 01/21/2025 3:11 PM EDT Narrative CLINISYNC - 01/21/2025 4:[address] NP [facility] Final Result Performing Organization Address [facility] Co de Phone Number [facility] * ALL CBC WITH AUTO DIFF (01/21/2025 3:09 PM EDT) Pathologist [facility] WBC 5.8 4.0 - 11.0 10 3/uL TBH TBH RBC 5.09 4.70 - 6.10 10 6/uL TBH TBH HGB 15.0 14.0 - 18.0 g/dL TBH TBH HCT 42.9 42.0 - 54.0 % TBH TBH MCV 84.3 80.0 - 94.0 fL TBH TBH MCH 29.5 25.9 - 34.0 pg TBH TBH MCHC 35.0 29.9 - 35.2 g/dL TBH TBH RDW 13.0 11.0 - 15.0 % TBH TBH PLT 205 150 - 450 10 3/uL TBH TBH MPV 10.4 9.5 - 13.5 fL TBH NEUTROPHILS PERCENT AUTO 54.8 43.0 - 75.0 % TBH LYMPHOCYTES PERCENT AUTO 30.3 20.5 - 60.0 % TBH MONOCYTES PERCENT AUTO 11.4 1.7 - 12.0 % TBH TBH EO % 2.6 0.9 - 7.0 % TBH BASOPHILS PERCENT AUTO 0.7 0.2 - 2.0 % TBH IMMATURE GRANULOCYTES PCT AUTO 0.2 0.0 - 0.5 % TBH NEUTROPHILS ABSOLUTE AUTO 3.2 1.4 - 6.5 10 3/uL TBH LYMPHOCYTES ABSOLUTE AUTO 1.8 1.2 - 3.8 10 3/uL TBH MONOCYTES ABSOLUTE AUTO 0.7 0.3 - 0.8 10 3/uL TBH TBH EO # 0.2 0.0 - 0.7 10 3/uL TBH BASOPHILS ABSOLUTE AUTO 0.0 0.0 - 0.1 10 3/uL TBH IMMATURE GRANULOCYTES ABS AUTO 0.01 0.00 - 0.03 10 3/uL TBH 01/21/2025 3:09 PM EDT 01/21/2025 3:11 PM EDT Narrative CLINIS[facility] - 01/21/2025 3:[address] us [address] NP [facility] Final Result [facility] TB documented in this encounter Visit Diagnoses Not on filedocumented in this encounter Additional Health Concerns Assessment Noted Time PHQ-9 Depression Total Score: 3 07/06/20 24 2:31 PM EST documented as of this encounter Care Teams Packing Clerk Relationship Specialty Start Date End Date Azael Skinner MD [address] [place] [phone] PCP - General Family Medicine 01/14/[address] NP [address] [place] [phone] PCP - Obi JON 08/19/[address] NP [address] [place] [phone] Nurse Practitioner Family Medicine 08/19/[address] NP [address] [place] [address] Nurse Practitioner Family Medicine 01/14/24 documented as of this encounter
--- OUTSIDE RECORDS SUMMARY | 2025-01-22 08:30 | XMS_ITS | Encounter Summary ---
Author Organization [facility] Address [address] [place] [address] Care Team Providers Care Enrollment Management Manager Name Role Phone Joie Lane LIFESTYLE CONSULTANT Unavailable [phone] Azael Skinner MD Primary Care Provider Joie Lane LIFESTYLE CONSULTANT Unavailable [phone] NP Unavailable [phone] Reason for Visit * Reason Comments Med Refill Encounter Details Date Type Department Care Team (Late st Contact Info) Description 05/04/2024 Refill [facility] [address] [place] [address] LIFESTYLE CONSULTANT [address] [place] [address] Gastroesophageal reflux disease without esophagitis Social History [...] often do you attend chur ch or sabianist services? More than 4 times per year 12/24/2023 Do you belong to any clubs o r organizations such as confucianist groups, unions, fraternal or athletic groups, or [...] Recorded Patient Health Questionnaire-2 Score 0 12/30/2023 [facility] - Occupational [...] No 12/24/2023 Housing Stability Vital Sign Answer Simno e Recorded In the last 12 months, [...] place to sleep or slept in a care home (including now)? No 12/24/2023 Sex and Gender [...] Visit [facility] [address] [place] [phone] Joie [address] NP [address] [place] [phone] documented as of this encounter Visit Diagnoses Diagnosis Gastroesophageal reflux disease without esophagitis Esophageal reflux documented in this encounter Care Teams Enrollment Management Manager Relationship Specialty Start Date End Date Azael Skinner MD [address] [place] [phone] PCP - General Family Medicine 01/14/[address] NP [address] [place] [phone] PCP - Obi JON 08/19/[address] NP [address] [place] [address] Nurse Practitioner Family Medicine 08/19/[address] NP [address] [place] [phone] Nurse Practitioner Family Medicine 01/14/24 documented as of this encounter
--- OUTSIDE RECORDS SUMMARY | 2025-01-22 08:30 | XMS_ITS | Encounter Summary ---
Author Organization [employer] tem Address [id number] [address] [place] [address] Care Team Providers Care Benzene Washer Name Role Phone Joie Lane WELDER PLASMA ARC-CREATIVE DIRECTOR Primary Care Provider Encounter Details Date Type Department Care Team (Late Contact Info) Description 05/12/2021 Orders Only [facility] [address] [place] [phone] Joie Negron Elevated PSA Social History Tobacco [...] Office Visit [facility] [address] [place] [address] [facility] [place] [address] Rustam Youssef MD [address] [place] [address] documented as of this encounter Visit Diagnoses Diagnosis Elevated PSA Elevated prostate specific antigen (PSA) documented in this encounter Care Teams Benzene Washer Relationship Specialty Start Date End Date Joie Lane, WELDER PLASMA ARC-CREATIVE DIRECTOR PCP - General Nurse Practitioner 11/26/17 documented as of this encounter
--- OUTSIDE RECORDS SUMMARY | 2025-01-22 08:30 | XMS_ITS | Encounter Summary ---
Author Organization [employer] tem Address [id number] [address] [place] [address] Care Team Providers Care Senior Revenue Accountant Name Role Phone GraceJoie mann Waleska HAYESN-SHAPER AND PRESSER Primary Care Provider Encounter Details Date Type Department Care Team (Late Contact Info) Description 05/12/2021 Abstract [facility] [address] [place] [phone] External, Scanning Provider Social History Tobacco Use [...] Office Visit [facility] [address] [place] [address] [place] [address] [address] Rustam Youssef MD [address] [place] [address] documented as of this encounter Procedures Procedure Name Priority Date/Time Associated Diagnosis Comments PROSTATIC SPECIFIC ANTIGEN, DIAGNOSTIC Routine 05/04/2021 documented in this encounter Results * Prostatic specific antigen, diagnostic (05/04/2021) Psa 5.49 MANUALLY TRANSCRIBED RESULTS 05/04/2021 us Scanning Provider External LAB BLOOD ORDERABLES Final Result MANUALLY TRANSCRIBED RESULTS documented in this encounter Visit Diagnoses Not on filedocumented in this encounter Care Teams Senior Revenue Accountant Relationship Specialty Start Date End Date Joie Lane, PERSONAL FINANCIAL ADVISOR-SHAPER AND PRESSER PCP - General Nurse Practitioner 11/26/17 documented as of this encounter
--- OUTSIDE RECORDS SUMMARY | 2025-01-22 08:30 | XMS_ITS | Encounter Summary ---
Author Organization [employer] tem Address [id number] [address] [place] [address] Care Team Providers Care Water Supervisor Name Role Phone GraceJoie mann Waleska SPEECH PATHOLOGY TEACHER-SOLAR CONSULTANT Primary Care Provider Encounter Details Date Type Department Care Team (Late Contact Info) Description 05/03/2023 Telephone [facility] [address] [place] [phone] Medina Barrera, JEFFERY Social History Tobacco Use [...] Upcoming Encounters Date Type Department Care Team ([facility] Contact Info) Description 06/08/2025 1:15 PM EDT Office Visit [facility] [address] [place] [address] [place] [address] Rustam Youssef MD [facility] [place] [place] [address] documented as of this encounter Visit Diagnoses Not on filedocumented in this encounter Care Teams Water Supervisor Relationship Specialty Start Date End Date Joie Lane, SPEECH PATHOLOGY TEACHER-SOLAR CONSULTANT PCP - General Nurse Practitioner 11/26/17 documented as of this encounter
--- OUTSIDE RECORDS SUMMARY | 2025-01-22 08:30 | XMS_ITS | Encounter Summary ---
Author Organization [facility] Address [address] [place] [address] Care Team Providers Care International Student Advisor Name Role Phone Joie Lane NP Unavailable [phone] Azael Skinner MD Primary Care Provider [phone] NP Unavailable [phone] NP Unavailable [phone] Encounter Details Date Type Department Care Team (Late st Contact Info) Description 01/21/2025 Results Follow-Up [facility] [address] [place] [address] Social History Tobacco Use Types Packs/Day Years [...] often do you attend chur ch or rastafari services? More than 4 times per year 12/24/2023 Do you belong to any clubs o r organizations such as religion groups, unions, fraternal or athletic groups, or [...] Recorded Patient Health Questionnaire-2 Score 0 07/06/2024 [facility] - Occupational Stress Questionnaire Answer Date Recorded [...] place to sleep or slept in a snf (including now)? No 12/24/2023 Sex and Gender Information Value Date Recorded Sex Assigned at Not on file Legal Sex Male 11:17 AM EDT Gender Identity Not on file Sexual Orientation Not on file documented as of this encounter Plan of Treatment Upcoming Encounters Date Type Department Care Team (Late st Contact Info) Description 07/07/2025 4:30 PM EST Office Visit [facility] [address] [place] [address] NP [address] [place] [phone] documented as of this encounter Visit Diagnoses Not on filedocumented in this encounter Additional Health Concerns Assessment Noted Time PHQ-9 Depression Total Score: 3 07/06/20 24 2:31 PM EST documented as of this encounter Care Teams International Student Advisor Relationship Specialty Start Date End Date Azael Skinner MD [address] [place] [phone] PCP - General Family Medicine 01/14/[address] NP [address] [place] [phone] PCP - Obi JON 08/19/[address] NP [address] [place] [address] Nurse Practitioner Family Medicine 08/19/[address] NP [address] [place] [phone] Nurse Practitioner Family Medicine 01/14/24 documented as of this encounter
--- OUTSIDE RECORDS SUMMARY | 2025-01-22 08:30 | XMS_ITS | Encounter Summary ---
Author Organization [employer] Address [id number] [address] [place] [address] Care Team Providers Care Mechanic Recovery Name Role Phone GraceJoie mann Waleska CAPSULE FILLER-WATCH CRYSTAL CUTTER Primary Care Provider Encounter Details Date Type Department Care Team (Late st Contact Info) Description 11/29/2022 Abstract [facility] [place] [address] External, Scanning Provider Social History Tobacco Use [...] Visit [facility] [address] [place] [address] [place] [phone] Rustam Youssef MD [address] [place] [address] documented as of this encounter Procedures Procedure Name Priority Date/Time Associated Diagnosis Comments MULTIPLE LABS Routine 11/13/2022 documented in this encounter Results * Multiple labs (11/13/2022) 11/13/2022 us Scanning Provider External [facility] Final Result MANUALLY TRANSCRIBED RESULTS documented in this encounter Visit Diagnoses Not on filedocumented in this encounter Care Teams Mechanic Recovery Relationship Specialty Start Date End Date Joie Lane, CAPSULE FILLER-WATCH CRYSTAL CUTTER PCP - General Nurse Practitioner 11/26/17 documented as of this encounter
--- OUTSIDE RECORDS SUMMARY | 2025-01-22 08:30 | XMS_ITS | Clinical Summary ---
Author Organization [facility] Address [address] [place] [address] Care Team Providers Care Motor Vehicle Salesperson Name Role Phone Joie Lane NP Unavailable [phone] Azael Skinner MD Primary Care Provider Joie Lane NP Unavailable [phone] NP Unavailable [phone] Allergies Active Allergy Reactions Criticality Noted [...] Noted Date Diagnosed Date Encounter for subsequent [facility] wellness visit (AWV) in Medicare patient [...] Encounters Date Type Department Care Team Description 01/21/2025 Results Follow-Up [facility] [address] [place] [address] 01/21/2025 Clinisync Result Encounter [facility] External Department Unsolicited Jioe Lane NP 01/04/2025 1:40 PM EDT Office Visit [facility] [address] [place] [address] NP Essential hypertension, benign (CMS/HCC) (Primary Dx); Gastroesophageal reflux disease without esophagitis; Primary hypothyroidism (CMS/HCC); Mixed hyperlipidemia (CMS/HCC); Essential (primary) hypertension (CMS/HCC); Essential hypertension (CMS/HCC); Hypothyroidism, unspecified; Hypothyroidism (CMS/HCC); Pain in left knee; Pain in unspecified knee 01/02/2025 Refill [facility] [address] [place] [address] NP Hypothyroidism, unspecified; Hypothyroidism (CMS/HCC) 12/30/2024 Refill [facility] [address] [place] [address] NP Pain in left knee; [...] 12/24/2023 How often do you attend chur or episcopalian services? More than 4 times per year [...] Recorded Patient Health Questionnaire-2 Score 0 07/06/2024 [facility] - Occupational [...] 07/07/2025 4:30 PM EST Office Visit [facility] [address] [place] [address] NP [address] [place] [address] Health Maintenance Due Date Last Done Comments CT Colonography 1956 Colonoscopy 1956 FIT 1956 FOBT 1956 Sigmoidoscopy 1955 Medicare Annual Wellness (AWV) 07/06/2025 07/06/2024 Colorectal Cancer Screening 01/03/2027 FIT-DNA 01/03/2027 01/04/2024 Pneumococcal Vaccine: 65+ Years Completed , 06/04/2020 Influenza Vaccine Completed 05/04/2024, , 05/14/2020, Additional history exists Procedures Procedure Name Priority Date/Time Associated Diagnosis Comments ALL THYROID STIM HORMONE Routine 01/21/2025 3:09 PM EDT ALL T3 FREE Routine 01/21/2025 3:09 PM EDT ALL LIPID PROFILE (FASTING) Routine 01/21/2025 3:09 PM EDT [facility] CMP (CMP) (FOR REMOTE [facility] USE) Routine 01/21/2025 3:09 PM EDT ALL THYROXINE (T4) FREE Routine 01/21/2025 3:09 PM EDT ALL CBC WITH AUTO DIFF Routine 01/21/2025 3:09 PM EDT LAB COLOGUARD COLON CANCER SCREEN Routine 01/04/2024 2:40 PM EDT Colon cancer screening from Last 3 Months or Most Recently Relevant to Health Maintenance Results * (ABNORMAL) [facility] CMP (CMP) (FOR REMOTE [facility] USE) (01/21/2025 3:09 PM EDT) SODIUM 140 136 - 145 mmol/L [facility] POTASSIUM 3.6 3.5 - 5.1 mmol/L [facility] CHLORIDE 103 98 - 107 mmol/L [facility] CARBON DIOXIDE 31.7 21.0 - 32.0 mmol/L [facility] ANION GAP 8.9 [facility] GLUCOSE 96 74 - 106 mg/dL [facility] BLOOD UREA NITROGEN 24.0(H) 7.0 - 18.0 mg/dL [facility] CREATININE 1.00 0.70 - 1.30 mg/dL [facility]H EGFR-AF [place] >60 >=60 mL/min/1. 73m 2 TBH TBH EGFR-NON AF [place] >60 >=60 mL/min/1. 73m 2 [facility] BUN [...] CLINISYNC - 01/21/2025 4:16 PM EDT Joie Mcintyresona UNCLAIMED PROPERTY OFFICER CLINISYNC Final Result Performing Organization Address [facility] Co de Phone Number CLINISYFL TB * ALL THYROXINE (T4) FREE (01/21/2025 3:09 PM EDT) FREE T4 1.30 0.76 - 1.46 ng/dL TB 01/21/2025 3:09 PM EDT 01/21/2025 3:11 PM EDT Narrative CLINISYNC - 01/21/2025 4:11 PM EDT Joie Mcintyresona PADILLA CLINISYNC Final Result Performing Organization Address [facility] de Phone Number CLINISYFL TB * ALL THYROID STIM HORMONE (01/21/2025 3:09 PM EDT) THYROID STIMULATING HORMONE 0.547 0.358 - 3.740 uIU/mL [facility] 01/21/2025 3:09 PM EDT 01/21/2025 3:11 PM EDT Narrative CLINISYNC - 01/21/2025 4:16 PM EDT Joie Mcintyresona UNCLAIMED PROPERTY OFFICER CLINISYNC Final Result Performing Organization Address [facility] de Phone Number CLINISYFL TB * ALL T3 FREE (01/21/2025 3:09 PM EDT) FREE T3 2.68 2.18 - 3.98 pg/mL TB 01/21/2025 3:09 PM EDT 01/21/2025 3:11 PM EDT Narrative CLINISYNC - 01/21/2025 4:16 PM EDT Joie Ariana UNCLAIMED PROPERTY OFFICER CLINISYNC Final Result Performing Organization Address [facility]/ZIP Co de Phone Number [facility] * ALL LIPID PROFILE (FASTING) (01/21/2025 3:09 PM EDT) TRIGLYCERIDES 114 <=150 mg/dL [facility] CHOLESTEROL 174 <=200 mg/dL TB HDL CHOLESTEROL 48 40 - 60 mg/dL [...] NP CLINISYNC Final Result Performing Organization Address [facility] Co de Phone Number [facility] * ALL CBC WITH AUTO DIFF (01/21/2025 3:09 PM EDT) TBH WBC 5.8 4.0 - 11.0 10 3/uL [...] us Joie Lane NP CLINISYNC Final Result [facility] * Cologuard?? colon cancer screening (01/04/2024 2:40 PM EDT) NONINV COLON CA DNA+OCC BLD SCRN STL-IMP Negative Negative 01/13/2024 7:35 PM EDT [facility] (CLIA #:[id number]) Comment: NEGATIVE TEST RESULT. A negative Cologuard [...] (Dena Durand al, N Engl J Med 2014;370(14):7135-8275) The normal value (reference range) for this assay is negative. COLOGUARD RE-SCREENING RECOMMENDATION: Periodic colorectal cancer screening is an important part of preventive healthcare for asymptomatic individuals at average risk for colorectal cancer. Following a negative Cologuard result, the [place] [employer] and U.S. Multi-Society Task Force screening guidelines recommend a Cologuard re-screening interval of 3 years. References: [place] [employer] Guideline for Colorectal Cancer Screening: https://www.cancer.org/cancer/pdfem-grxeez-wmzhwa/nhyrcjdbl-fpmvscvmy-bxjkquc/ac s-rec ommendations.html.; Erick DK, Delvin ROSENTHAL, Jarrett GaleanoK, Colorectal Cancer Screening: Recommendations for Physicians and Patients from the U.S. Multi-Society Task Force on Colorectal Cancer Screening , Am J Gastroenterology 2017; 112:3006-1422. TEST DESCRIPTION: Composite algorithmic analysis of stool [...] (Dena Durand al, N Engl J Med 2014;370(14):9312-7136.) Cologuard may produce a false negative or false positive result (no colorectal cancer or precancerous polyp present at colonoscopy follow up). A negative Cologuard test result does not guarantee the absence of CRC or advanced adenoma (pre-cancer). The current Cologuard screening interval is every 3 years. ([place] [employer] and U.S. Multi-Society Task Force). Cologuard performance data in a 10,000 patient pivotal study using colonoscopy as the reference method can be accessed at the following location: www.[employer].com/results. Additional description of the Cologuard test process, warnings and precautions can be found at www.cologuard.com. Stool specimen (specimen) 01/04/2024 2:40 PM EDT 01/07/2024 11:[address] NP LAB MOLECULAR DIAGNOSTICS ORDER MARY Final Result .[facility] (CLIA #:[id number]) [address] [address] [phone] [facility] (CLIA #:[id number]) [address] [id number] from Last 3 Months or Most Recently Relevant to Health Maintenance Insurance MEDICARE MEDICAID [place] [employer] MEDICARE ADVANTAGE Care Teams Motor Vehicle Salesperson Relationship Specialty Start Date End Date Azael Skinner MD [address] [place] [address] PCP - General Family Medicine 01/14/[address] NP [address] [place] [address] PCP - [place] 08/19/[address] NP [address] [place] [address] Nurse Practitioner Family Medicine 08/19/[address] NP [address] [place] [address] Nurse Practitioner Family Medicine 01/14/24
--- OUTSIDE RECORDS SUMMARY | 2025-01-22 08:51 | XMS_ITS | CCD ---
Author Organization [facility] Care Team Providers Care Director Of Head Start Name Role Phone ARIANA, WHITE SHOE EXAMINER JOIE Admitting Unavailable AICHHOLZ, WHITE SHOE EXAMINER JOIE Primary Care Unavailable AICHHOLZ, WHITE SHOE EXAMINER JOIE Consulting Unavailable AICHHOLZ, WHITE SHOE EXAMINER JOIE Attending Unavailable AICHHOLZ, WHITE SHOE EXAMINER JOIE Admitting Unavailable AICHHOLZ, WHITE SHOE EXAMINER JOIE Primary Care Unavailable AICHHOLZ, WHITE SHOE EXAMINER JOIE Consulting Unavailable AICHHOLZ, WHITE SHOE EXAMINER JOIE Attending Unavailable Aichholz SPRAY WORKER, Joie Unavailable Azael Skinner MD Primary Care Provider Aichholz SPRAY WORKER, Joie Unavailable Aichholz SPRAY WORKER, Joie Unavailable AICHJOHNNAZ, JOIE Attending Unavailable AICHHOLZ, JOIE Attending Unavailable Allergies Allergy Classification Reported Allergen(s) Allergy Type Date of Onset Reaction(s) Facility (9 sources) Milk-Related Compounds Propensity to adverse reactions 4 GI intolerance [facility] (9 sources) Other Propensity to adverse reactions 7 [facility] Work Phone: Medications Current Medications Medication Drug Class(es) Dates Sig (Normalized) Sig (Original) levothyroxine sodium 0.05 mg oral tablet (10 sources) l-Thyroxine Start: 01-04-2025 End: 04-04-2025 take 1 tablet by mouth before mealtime levothyroxine (Synthroid, Levoxyl) 50 MCG tablet Indications: Hypothyroidism, unspecified , Hypothyroidism (CMS/HCC) Take 1 tablet (50 mcg) by mouth in the morning. Take before meals. 90 tablet 01/04/2025 04/04/2025 Active Start: 12-30-2023 End: 10-04-2024 take 1 tablet by mouth before mealtime levothyroxine (Synthroid, Levoxyl) 50 MCG tablet Indications: Hypothyroidism, unspecified , Hypothyroidism (CMS/HCC) Take 1 tablet (50 mcg) by mouth in the morning. Take before meals. 90 tablet 1 07/06/2024 Active meloxicam 15 mg oral tablet (11 sources) Nonsteroidal Anti-inflammatory Drug Start: 12-30-2024 End: 04-04-2025 take 1 tablet by mouth once daily as needed for pain meloxicam (Mobic) 15 MG tablet Indications: Pain in left knee , Pain in unspecified knee Take 1 tablet (15 mg) by mouth Daily as needed for moderate pain 90 tablet 01/04/2025 04/04/2025 Active Start: 04-16-2024 End: 10-11-2024 take 1 tablet by mouth once daily as needed for pain meloxicam (Mobic) 15 MG tablet Indications: Pain in left knee , Pain in unspecified knee Take 1 tablet (15 mg) by mouth Daily as needed for moderate pain 90 tablet 07/13/2024 10/11/2024 Active pantoprazole 40 mg delayed release oral tablet (10 sources) Proton Pump Inhibitor Start: 05-03-2024 End: 10-04-2024 take 1 tablet by mouth once daily as needed pantoprazole (ProtoNix) 40 MG EC tablet Indications: Gastroesophageal reflux disease without esophagitis Take 1 tablet (40 mg) by mouth Daily as needed (acid reflux) 90 tablet 1 07/06/2024 Active Completed/Discontinued Medications Medication Drug Class(es) Dates Sig (Normalized) Sig (Original) hydroCHLOROthiazide 12.5 mg / valsartan 160 mg oral tablet (11 sources) Thiazide Diuretic, Angiotensin 2 Receptor Stacia Start: 12-30-2023 End: 04-04-2025 take 1 tablet by mouth once daily valsartan-hydroCHL OROthiazide (Diovan-HCT) 160-12.5 MG tablet Indications: Essential (primary) hypertension (CMS/HCC) , Essential hypertension (CMS/HCC) Take 1 tablet by mouth Daily 90 tablet 1 07/06/2024 01/04/2025 Discontinued (Reorder) pravastatin sodium 20 mg oral tablet (12 sources) HMG-CoA Reductase Inhibitor Start: 05-03-2024 End: 04-04-2025 take 1 tablet by mouth at bedtime pravastatin (Pravachol) 20 MG tablet Indications: Mixed hyperlipidemia (CMS/HCC) Take 1 tablet (20 mg) by mouth at bedtime 90 tablet 1 07/06/2024 01/04/2025 Discontinued (Reorder) Problems Active Problems Problem Classification Problem Date Documented Date Episodic/Chronic Disorders of lipid metabolism (15 sources) Hyperlipidemia, unspecified; Translations: [Mixed hyperlipidemia] Onset: 11-16-2022 12-30-2023 Chronic Esophageal disorders (14 sources) Gastroesophageal reflux disease without esophagitis; Translations: [Gastro-esophageal reflux disease without esophagitis] Onset: 12-30-2023 12-30-2023 Chronic Essential hypertension (20 sources) Essential (primary) hypertension; Translations: [Benign essential hypertension] Onset: 11-14-2022 Chronic Other non-traumatic joint disorders (4 sources) Pain in left knee; Translations: [Pain in joint, lower leg] 07-12-2024 Episodic Other non-traumatic joint disorders (4 sources) Pain in unspecified knee; Translations: [Pain in joint, lower leg] 07-12-2024 Episodic Thyroid disorders (20 sources) Hypothyroidism, unspecified; Translations: [Unspecified acquired hypothyroidism] Onset: 11-16-2022 12-30-2023 Chronic Past or Other Problems Problem Classification Problem Date Documented Da te Episodic/Chronic Malaise and fatigue (9 sources) Fatigue; Translations: [Other fatigue] Onset: 12-30-2023 12-30-2023 Episodic Mood disorders (7 sources) Mood disorders Onset: 07-06-2024 07-06-2024 Other screening for suspected conditions (not mental disorders or infectious disease) (20 sources) Elevated prostate specific antigen [PSA]; Translations: [Raised prostate specific antigen] Onset: 11-06-2016 12-30-2023 Episodic Results Test Name Value Interpretation Reference Range Facil ity PSA, FREE AND TOTAL RATIOon 11-14-2022 % Free PSA 22.2 % Normal [facility] Comment on above: Result Comment: The table below lists the probability of prostate cancer for men with non-suspicious HUDSON results and total PSA between 4 and 10 ng/mL, by patient age (Perico et al, DEJUAN 1998, 279:1542). % Free PSA 50-64 yr 65-75 yr 0.00-10.00% 56% 55% 10.01-15.00% 24% 35% 15.01-20.00% 17% 23% 20.01-25.00% 10% 20% >25.00% 5% 9% Please note: Perico et al did not make specific recommendations regarding the use of percent free PSA for any other population of men. Performed By: #### P SAFREE #### [facility] [address] [place] [address] Dr. Jes Delgado Prostate specific Ag [Mass/Vol] 4.9 ng/mL Critically high 0.0-4.0 [facility] Comment on above: Result Comment: Cain SANCHEZ methodology. . According to the [employer], Serum PSA should decrease and remain at undetectable levels after radical prostatectomy. The AUA defines biochemical recurrence as an initial PSA value 0.2 ng/mL or greater followed by a subsequent confirmatory PSA value 0.2 ng/mL or greater. Values obtained with different assay methods or kits cannot be used interchangeably. Results cannot be interpreted as absolute evidence of the presence or absence of malignant disease. Performed By: #### P SAFREE #### [facility] [address] [place] [address] Dr. Jes Delgado PSA, Free 1.09 ng/mL Normal N/A [facility] Comment on above: Result Comment: Cain ventura ECLIA methodology. Performed By: #### P SAFREE #### [facility] [address] [place] [address] Dr. Jes Delgado UA RANDOM W/MICROSCOPICon BACTERIA NONE SEEN Normal NONE SEEN [facility] Comment on above: Performed By: #### U AMIC #### [facility] [address] [place] [address] Dr. Jes Delgado Bilirubin Ql (U) Negative Normal NEGATIVE The [facility] Comment on above: Performed By: #### U AMIC #### [facility] [address] [place] [address] Dr. Jes Delgado CAST NONE SEEN Normal NONE SEEN [facility] Comment on above: Performed By: #### U AMIC #### [facility] [address] [place] [address] Dr. Jes Delgado Clarity (U) CLEAR Normal CLEAR [facility] Comment on above: Performed By: #### U AMIC #### [facility] [address] [address] [address] Jes Delgado Color (U) LT. YELLOW Normal YELLOW [facility] Comment on above: Performed By: #### U AMIC #### [facility] [address] [address] [address] Jes Delgado Crystals LM Nom (Urine sed) NONE SEEN Normal NONE SEEN [facility] Comment on above: Performed By: #### U AMIC #### [facility] [address] [address] [address] Jes Delgado Epithelial cells LM Ql (Urine sed) RARE Normal NONE SEEN /RARE [facility] Comment on above: Performed By: #### U AMIC #### [facility] [address] [place] [address] Dr. Jes Delgado Glucose Ql (U) Negative Normal NEGATIVE [facility] Comment on above: Performed By: #### U AMIC #### [facility] [address] [address] [address] Jes Delgado Hemoglobin Ql (U) Negative Normal NEGATIVE [facility] Comment on above: Performed By: #### U AMIC #### [facility] [address] [place] [address] Dr. Jes Delgado Ketones Ql (U) Negative Normal NEGATIVE [facility] Comment on above: Performed By: #### U AMIC #### [facility] [address] [address] [address] Jes Delgado LEUKOCYTES Negative Normal NEGATIVE [facility] Comment on above: Performed By: #### U AMIC #### [facility] [address] [address] [address] Jes Delgado MUCOUS MODERATE Abnormal NONE SEEN [facility] Comment on above: Performed By: #### U AMIC #### [facility] [address] [place] [address] Dr. Jes Delgado Nitrite Ql (U) Negative Normal NEGATIVE [facility] Comment on above: Performed By: #### U AMIC #### [facility] [address] [place] [address] Dr. Jes Delgado pH (U) 6.0 [pH] Normal 5-9 [facility] Comment on above: Performed By: #### U AMIC #### [facility] [address] [place] [address] Dr. Jes Delgado RBC NONE SEEN Abnormal 0-2 [facility] Comment on above: Performed By: #### U AMIC #### [facility] [address] [place] [address] Dr. Jes Delgado SPEC GRAVITY 1.010 Normal 1.005-<=1.[address] [facility] Comment on above: Performed By: #### U AMIC #### [facility] [address] [place] [address] Dr. Jes Delgado UA PROTEIN Negative Normal NEGATIVE/ TRACE [facility] Comment on above: Performed By: #### U AMIC #### [facility] [address] [place] [address] Dr. Jes Delgado Urobilinogen Qn (U) 1.0 {Jonah'U}/dL Normal 0.2 - 1. 0 [facility] Comment on above: Performed By: #### U AMIC #### [facility] [address] [place] [address] Dr. Jes Delgado WBC NONE SEEN Normal NONE SEEN [facility] Comment on above: Performed By: #### U AMIC #### [facility] [address] [place] [address] Dr. Jes Delgado CBC AUTO DIFFon 11-13-2022 BASO # 0.1 103/ul Normal 0.0-0.1 [facility] Comment on above: Performed By: #### C BC #### [facility] [address] [place] [address] Dr. Jes Delgado Basophils/100 WBC (Bld) 0.8 % Normal 0.2-2.0 [facility] Comment on above: Performed By: #### C BC #### [facility] [address] [place] [address] Dr. Jes Delgado EO # 0.2 103/ul Normal 0.0-0.7 [facility] Comment on above: Performed By: #### C BC #### [facility] [address] [place] [address] Dr. Jes Delgado Eosinophils/100 WBC (Bld) 3.2 % Normal 0.9-7.0 [facility] Comment on above: Performed By: #### C BC #### [facility] [address] [place] [address] Dr. Jes Delgado Erythrocyte distribution width (RBC) [Ratio] 13.0 % Normal 11.0-15.0 [facility] Comment on above: Performed By: #### C BC #### [facility] [address] [place] [address] Dr. Jes Delgado Hematocrit (Bld) [Volume fraction] 43.0 % Normal 42.0-54.0 [facility] Comment on above: Performed By: #### C BC #### [facility] [address] [place] [address] Dr. Jes Delgado Hemoglobin (Bld) [Mass/Vol] 14.9 g/dL Normal 14.0-18.0 [facility] Comment on above: Performed By: #### C BC #### [facility] [address] [place] [address] Dr. Jes Delgado IG # 0.01 10e3/ul Normal 0.00-0.03 [facility] Comment on above: Performed By: #### C BC #### [facility] [address] [place] [address] Dr. Jes Delgado IG % 0.2 % Normal 0.0-0.5 [facility] Comment on above: Performed By: #### C BC #### [facility] [address] [place] [address] Dr. Jes Delgado LYMPH # 2.1 103/ul Normal 1.2-3.8 [facility] Comment on above: Performed By: #### C BC #### [facility] [address] [place] [address] Dr. Jes Delgado Lymphocytes/100 WBC (Bld) 32.6 % Normal 20.5-60.0 [facility] Comment on above: Performed By: #### C BC #### [facility] [address] [place] [address] Dr. Jes Delgado MANUAL DIFF REQ NO Normal [facility] Comment on above: Performed By: #### C BC #### [facility] [address] [place] [address] Dr. Jes Delgado MCH (RBC) [Entitic mass] 29.2 pg Normal 25.9-34.0 [facility] Comment on above: Performed By: #### C BC #### [facility] [address] [place] [address] Dr. Jes Delgado MCHC (RBC) [Mass/Vol] 34.7 g/dL Normal 29.9-35.2 [facility] Comment on above: Performed By: #### C BC #### [facility] [address] [place] [address] Dr. Jes Delgado MCV (RBC) [Entitic vol] 84.1 fL Normal 80.0-94.0 [facility] Comment on above: Performed By: #### C BC #### [facility] [address] [place] [address] Dr. Jes Delgado MONO # 0.6 103/ul Normal 0.3-0.8 [facility] Comment on above: Performed By: #### C BC #### [facility] [address] [place] [address] Dr. Jes Delgado Monocytes/100 WBC (Bld) 9.7 % Normal 1.7-12.0 [facility] Comment on above: Performed By: #### C BC #### [facility] [address] [place] [address] Dr. Jes Delgado NEUT # 3.4 103/ul Normal 1.4-6.5 [facility] Comment on above: Performed By: #### C BC #### [facility] [address] [place] [address] Dr. Jes Delgado Neutrophils/100 WBC (Bld) 53.5 % Normal 43.0-75.0 [facility] Comment on above: Performed By: #### C BC #### [facility] [address] [address] [address] Jes Delgado Platelet mean volume (Bld) [Entitic vol] 10.6 fL Normal 9.5-13.5 [facility] Comment on above: Performed By: #### C BC #### [facility] [address] [place] [address] Dr. Jes Delgado PLT 202 103/ul Normal 150-450 [facility] Comment on above: Performed By: #### C BC #### [facility] [address] [place] [address] Dr. Jes Delgado RBC 5.11 106/ul Normal 4.70-6.10 [facility] Comment on above: Performed By: #### C BC #### [facility] [address] [place] [address] Dr. Jes Delgado WBC 6.3 103/ul Normal 4.0-11.0 [facility] Comment on above: Performed By: #### C BC #### [facility] [address] [place] [address] Dr. Jes Delgado FREE T4on 11-13-2022 Free T4 [Mass/Vol] 1.17 ng/dL Normal 0.76-1.46 [facility] Comment on above: Performed By: #### F T4 #### [facility] [address] [place] [address] Dr. Jes Delgado LIPID PROFILEon 11-13-2022 CHOL-HDL RATIO NORM SEE BELOW Normal [facility] Comment on above: Result Comment: 3.3 - 4.4 LOW RISK 4.4 - 7.1 AVERAGE RISK 7.1 - 11.0 MODERATE RISK >11.0 HIGH RISK Performed By: #### C MP, TSH, LIPID #### [facility] [address] [place] [address] Dr. Jes Delgado Cholesterol [Mass/Vol] 156 mg/dL Normal <=200 [facility] Comment on above: Performed By: #### C MP, TSH, LIPID #### [facility] [address] [address] [address] Jes Delgado Cholesterol in HDL [Mass/Vol] 45 mg/dL Normal 40-60 [facility] Comment on above: Performed By: #### C MP, TSH, LIPID #### [facility] [address] [address] [address] Jes Delgado Cholesterol in LDL [Mass/Vol] 92.0 mg/dL Normal [facility] Comment on above: Performed By: #### C MP, TSH, LIPID #### [facility] [address] [address] [address] Jes Delgado Cholesterol.total/C holesterol in HDL [Mass ratio] 3.5 {ratio} Normal [facility] Comment on above: Performed By: #### C MP, TSH, LIPID #### [facility] [address] [address] [address] Jes Delgado HDL NORMAL > or = 60 mg/dl - LO W CARDIOVASCULAR RISK <40 mg/dl - HIGH CARDIOVASCULAR RISK Normal [facility] Comment on above: Performed By: #### C MP, TSH, LIPID #### [facility] [address] [address] [address] Jes Delgado LDL CALC NORMAL SEE BELOW Normal [facility] Comment on above: Result Comment: <100 mg/dl OPTIMAL 100 - 129 mg/dl NEAR OR ABOVE OPTIMAL 130 - 159 mg/dl BORDERLINE HIGH 160 - 189 mg/dl HIGH >190 mg/dl VERY HIGH Performed By: #### C MP, TSH, LIPID #### [facility] [address] [address] [address] Jes Delgado Triglyceride [Mass/Vol] 95 mg/dL Normal <=150 [facility] Comment on above: Performed By: #### C MP, TSH, LIPID #### [facility] [address] [place] [address] Dr. Jes Delgado VLDL CALC 19.0 mg/dL Normal [facility] Comment on above: Performed By: #### C MP, TSH, LIPID #### [facility] [address] [address] [address] Jes Delgado PROF 14(COMP METB)on 023 Albumin [Mass/Vol] 3.9 g/dL Normal 3.4-5.0 [facility] Comment on above: Performed By: #### C MP, TSH, LIPID #### [facility] [address] [address] [address] Jes Delgado Albumin/Globulin [Mass ratio] 1.2 {ratio} Normal [facility] Comment on above: Performed By: #### C MP, TSH, LIPID #### [facility] [address] [address] [address] Jes Delgado ALP [Catalytic activity/Vol] 85 U/L Normal 46-116 [facility] Comment on above: Performed By: #### C MP, TSH, LIPID #### [facility] [address] [address] [address] Jes Delgado ALT [Catalytic activity/Vol] 27 U/L Normal 16-63 [facility] Comment on above: Performed By: #### C MP, TSH, LIPID #### [facility] [address] [address] [address] Jes Delgado Anion gap [Moles/Vol] 10.6 mmol/L Normal [facility] Comment on above: Performed By: #### C MP, TSH, LIPID #### [facility] [address] [place] [address] Dr. Jes Delgado AST [Catalytic activity/Vol] 22 U/L Normal 15-37 [facility] Comment on above: Performed By: #### C MP, TSH, LIPID #### [facility] [address] [address] [address] Jes Delgado Bilirubin [Mass/Vol] 0.7 mg/dL Normal 0.2-1.0 [facility] Comment on above: Performed By: #### C MP, TSH, LIPID #### [facility] [address] [address] [address] Jes Delgado Calcium [Mass/Vol] 9.0 mg/dL Normal 8.5-10.1 [facility] Comment on above: Performed By: #### C MP, TSH, LIPID #### [facility] [address] [address] [address] Jes Delgado Chloride [Moles/Vol] 104 mmol/L Normal 98-107 [facility] Comment on above: Performed By: #### C MP, TSH, LIPID #### [facility] [address] [address] [address] Jes Delgado CO2 [Moles/Vol] 30.9 mmol/L Normal 21.0-32.0 The [facility] Comment on above: Performed By: #### C MP, TSH, LIPID #### [facility] [address] [address] [address] Jes Delgado Creatinine [Mass/Vol] 0.89 mg/dL Normal 0.70-1.30 [facility] Comment on above: Performed By: #### C MP, TSH, LIPID #### [facility] [address] [place] [address] Dr. Jes Delgado EGFR-AF CROATIAN >60 Normal >=60 The [facility] Comment on above: Performed By: #### C MP, TSH, LIPID #### [facility] [address] [place] [address] Dr. Jse Delgado EGFR-NON AF CROATIAN >60 Normal >=60 [facility] Comment on above: Performed By: #### C MP, TSH, LIPID #### [facility] [address] [address] [address] Jes Delgado Globulin (S) [Mass/Vol] 3.3 g/dL Normal [facility] Comment on above: Performed By: #### C MP, TSH, LIPID #### [facility] [address] [place] [address] Dr. Jes Delgado Glucose [Mass/Vol] 102 mg/dL Normal 74-106 [facility] Comment on above: Performed By: #### C MP, TSH, LIPID #### [facility] [address] [place] [address] Dr. Jes Delgado Potassium [Moles/Vol] 3.5 mmol/L Normal 3.5-5.1 [facility] Comment on above: Performed By: #### C MP, TSH, LIPID #### [facility] [address] [address] [address] Jes Delgado Protein [Mass/Vol] 7.2 g/dL Normal 6.4-8.2 [facility] Comment on above: Performed By: #### C MP, TSH, LIPID #### [facility] [address] [address] [address] Jes Delgado Sodium [Moles/Vol] 142 mmol/L Normal 136-145 [facility] Comment on above: Performed By: #### C MP, TSH, LIPID #### [facility] [address] [address] [address] Jes Delgado Urea nitrogen [Mass/Vol] 25.0 mg/dL Critically high 7.0-18.0 [facility] Comment on above: Performed By: #### C MP, TSH, LIPID #### [facility] [address] [place] [address] Dr. Jes Delgado Urea nitrogen/Creatinine [Mass ratio] 28.1 mg/mg Normal [facility] Comment on above: Performed By: #### C MP, TSH, LIPID #### [facility] [address] [address] [address] Jes Delgado TSHon 11-13-2022 TSH 0.335 uIU/mL Critically low 0.358-3.740 [facility] Comment on above: Performed By: #### C MP, TSH, LIPID #### [facility] [address] [place] [address] Dr. Jes Delgado Vital Signs Date Time Vital Sign Value Performing Clinician Dilshad mullins 01-04-2025 13:38-0400 Body mass index (BMI) [Ratio] 24.42 kg/m2 Joie Lane [employer] WORKER Work Phone: [facility] 01-04-2025 13:38-0400 Body temperature 98.1 [degF] Joie Lane [employer]AY WORKER Work Phone: [facility] 01-04-2025 13:38-0400 Body weight 77.[address] [employer] WORKER Work Phone: [facility] 01-04-2025 13:38-0400 Diastolic blood pressure 76 mm[Hg] Joie Gracehholz SPRAY WORKER Work Phone: [facility] 01-04-2025 13:38-0400 Heart rate 72 /min Joie Gracehholz SPRAY WORKER Work Phone: [facility] 01-04-2025 13:38-0400 Respiratory rate 18 /min Joie Gracehholz SPRAY WORKER Work Phone: [facility] 01-04-2025 13:38-0400 SaO2% (BldA) [Mass fraction] 97 % Joie Aichholz [employer] WORKER Work Phone: [facility] 01-04-2025 13:38-0400 Systolic blood pressure 108 mm[Hg] Joie Aichholz [employer] WORKER Work Phone: [facility] 07-06-2024 14:26-0500 Body height 177.8 cm Joie Gracehholz [employer] WORKER Work Phone: [facility] 07-06-2024 14:26-0500 Body mass index (BMI) [Ratio] 25.11 kg/m2 Joie Aichholz [employer] WORKER Work Phone: [facility] 07-06-2024 14:26-0500 Body temperature 98.49 [degF] Joie Gracehholz [employer] WORKER Work Phone: [facility] 07-06-2024 14:26-0500 Body weight 79.38 kg Joie Gracehholz [employer] WORKER Work Phone: [facility] 07-06-2024 14:26-0500 Diastolic blood pressure 80 mm[Hg] Joie Aichholz SPR[employer] WORKER Work Phone: [facility] 07-06-2024 14:26-0500 Heart rate 64 /min Joie Aichholz SPR[employer] WORKER Work Phone: [facility] 07-06-2024 14:26-0500 Respiratory rate 18 /min Joie Aichholz SPRAY WORKER Work Phone: [place] [id number] 14:26-0500 SaO2% (BldA) [Mass fraction] 96 % Joie Lane SPRAY WORKER Work Phone: [facility] 07-06-2024 14:26-0500 Systolic blood pressure 102 mm[Hg] Joie Lane SPRAY WORKER Work Phone: [facility] Healthcare Encounters Encounter Date Encounter Type Care Provider Facility Start: 01-04-2025 End: 01-04-2025 Office outpatient visit [address] SPRAY WORKER Work Phone: [facility] Comment on above: Essential hypertensi on, benign (CMS/HCC) (Primary Dx); Gastroesophageal reflux disease without esophagitis; Primary hypothyroidism (CMS/HCC); Mixed hyperlipidemia (CMS/HCC); Essential (primary) hypertension (CMS/HCC); Essential hypertension (CMS/HCC); Hypothyroidism, unspecified; Hypothyroidism (CMS/HCC); Pain in left knee; Pain in unspecified knee Start: 01-04-2025 End: 01-04-2025 ambulatory JOIE AICHHOLZ Not Available Start: 01-02-2025 End: 01-04-2025 Refill Joie Aiccalinholz SPRAY WORKER Work Phone: [facility] Comment on above: Hypothyroidism, unsp ecified; Hypothyroidism (CMS/HCC) Start: 12-30-2024 End: 12-30-2024 Refill Joie Aiccalinholz SPRAY WORKER Work Phone: [facility] Comment on above: Pain in left knee; Pain in unspecified knee Start: 07-12-2024 End: 07-13-2024 Refill Joie Aichholz SPRAY WORKER Work Phone: [facility] Comment on above: Pain in left knee; Pain in unspecified knee Start: 07-06-2024 End: 07-06-2024 ambulatory JOIE AICHHOLZ Not Available Start: 07-06-2024 End: 07-06-2024 Bamboo flowsheet Joie Ariana SPRAY WORKER Work Phone: [facility] Start: 07-06-2024 End: 07-06-[address] SPRAY WORKER Work Phone: [facility] Start: 07-06-2024 End: 07-06-2024 Patient encounter procedure Joie Lane NP Work Phone: [facility] Healthcare Comment on above: Encounter for subseq uent annual wellness visit (AWV) in Medicare patient (Primary Dx); Essential hypertension, benign (CMS/HCC); Gastroesophageal reflux disease without esophagitis; Elevated PSA; Primary hypothyroidism (CMS/HCC); Mixed hyperlipidemia (CMS/HCC); Hypothyroidism, unspecified (CMS/HCC); Hypothyroidism (CMS/HCC); Essential (primary) hypertension (CMS/HCC); Essential hypertension (CMS/HCC) Start: 05-02-2024 End: 05-03-[address] SPRAY WORKER Work Phone: [facility] Comment on above: Mixed hyperlipidemia (CMS/HCC); Gastroesophageal reflux disease without esophagitis Start: 11-14-2022 End: 11-14-[address] Facility:[facility]1 Start: 11-13-2022 End: 11-14-[address] Facility:[facility] Plan of Treatment Date Care Activity Detail Author Start: 01-03-2027 Screening for malignant neoplasm of colon [facility] Start: 07-07-2025 End: 07-07-2025 Patient encounter procedure 07/07/2025 4:30 PM EST Office Visit [facility] [address] [place] [id number] NP [address] [place] [id number] [facility] Start: 07-06-2025 Medicare Annual Wellness (AWV) Medicare Annual Wellness (AWV) [facility] Start: 01-04-2025 End: 01-04-2026 CBC W Auto Differential panel - Blood CBC and differential Lab Routine Gastroesophageal reflux disease without esophagitis Expected: 01/04/2025 (Approximate), Expires: 01/04/2026 [facility] Work Phone: Comment on above: Expected: 01/04/2025 (Approximate), Expi res: 01/04/2026 Start: 01-04-2025 End: 01-04-2026 Comprehensive metabolic 2000 panel - Serum or Plasma Comprehensive metabolic panel Lab Routine Essential hypertension, benign (CMS/HCC) Primary hypothyroidism (CMS/HCC) Mixed hyperlipidemia (CMS/HCC) Expected: 01/04/2025 (Approximate), Expires: 01/04/2026 [facility] Comment on above: Expected: 01/04/2025 (Approximate), Expi res: 01/04/2026 Start: 01-04-2025 End: 01-04-2026 Lipid 1996 panel - Serum or Plasma Lipid panel Lab Routine Mixed hyperlipidemia (CMS/HCC) Expected: 01/04/2025 (Approximate), Expires: 01/04/2026 [facility] Comment on above: Expected: 01/04/2025 (Approximate), Expi res: 01/04/2026 Start: 01-04-2025 End: 01-04-2026 Microalbumin/Creatinine panel in random Urine Microalbumin / creatinine, urine ratio Lab Routine Essential hypertension, benign (CMS/HCC) Expected: 01/04/2025 (Approximate), Expires: 01/04/2026 [facility] Comment on above: Expected: 01/04/2025 (Approximate), Expi res: 01/04/2026 Start: 01-04-2025 End: 01-04-2026 Thyrotropin [Units/volume] in Serum or Plasma TSH Lab Routine Primary hypothyroidism (CMS/HCC) Expected: 01/04/2025 (Approximate), Expires: 01/04/2026 [facility] Comment on above: Expected: 01/04/2025 (Approximate), Expi res: 01/04/2026 Start: 01-04-2025 End: 01-04-2026 Thyroxine (T4) free [Mass/volume] in Serum or Plasma T4, free Lab Routine Primary hypothyroidism (CMS/HCC) Expected: 01/04/2025 (Approximate), Expires: 01/04/2026 [facility] Comment on above: Expected: 01/04/2025 (Approximate), Expi res: 01/04/2026 Start: 01-04-2025 End: 01-04-2026 Triiodothyronine (T3) Free [Mass/volume] in Serum or Plasma T3, free Lab Routine Primary hypothyroidism (CMS/HCC) Expected: 01/04/2025 (Approximate), Expires: 01/04/2026 [facility] Comment on above: Expected: 01/04/2025 (Approximate), Expi res: 01/04/2026 Start: 01-04-2025 End: 01-04-2026 Urinalysis complete panel - Urine Urinalysis with reflex microscopic (clean catch) Lab Routine Essential hypertension, benign (CMS/HCC) Expected: 01/04/2025 (Approximate), Expires: 01/04/2026 [facility] Comment on above: Expected: 01/04/2025 (Approximate), Expi res: 01/04/2026 Start: 01-04-2025 End: 01-04-2025 Patient encounter procedure 01/04/2025 1:40 PM EDT Office Visit [facility] [address] [place] [phone] NP [address] [place] [id number] [facility] Start: 07-06-2024 End: 07-06-2024 Patient encounter procedure [facility] Comment on above: Essential hypertension, benign (CMS/HCC) (Primary Dx); Gastroesophageal reflux disease without esophagitis; Elevated PSA; Primary hypothyroidism (CMS/HCC); Mixed hyperlipidemia (CMS/HCC); Encounter for subsequent annual wellness visit (AWV) in Medicare patient Start: 04-19-2024 Influenza vaccination Influenza Vaccine (#1) [facility] Start: 1955 Medicare Annual Wellness (AWV) Medicare Annual Wellness (AWV) [facility] Start: 1955 Screening for malignant neoplasm of colon [facility] Immunizations Immunization Date Immunization Notes Care Provider Fa cility 05-04-2024 influenza, high dose seasonal, preservative-free Joie Lane NP Work Phone: [facility] 10-13-2022 pneumococcal polysaccharide vaccine, 23 valent Joie Aichholz SPRAY WORKER Work Phone: [facility] 06-02-2022 Influenza, High-dose Seasonal, Quadrivalent, Preservative Free Joie Aichholz SPRAY WORKER Work Phone: [facility] 06-02-2022 influenza virus vacc ine, unspecified formulation Joie Aichholz SPRAY WORKER Work Phone: [facility] 06-04-2020 pneumococcal conjuga te vaccine, 13 valent Joie Aichholz SPRAY WORKER Work Phone: [facility] 05-14-2020 Influenza, injectabl e, Madin [place] Canine Kidney, quadrivalent with preservative Joie Aichholz SPRAY WORKER Work Phone: [facility] 06-01-2019 influenza, injectabl e, quadrivalent, preservative free Joie Aichholz SPRAY WORKER Work Phone: [facility] 2018 Influenza, injectabl e, Madin [place] Canine Kidney, preservative free, quadrivalent Joie Aichholz SPRAY WORKER Work Phone: [facility] Payers Date Payer Category Payer Medicare [id number] 2023 Medicare (Managed Care) [id number] 2023 Medicare [id number] 2023 Medicaid [id number] 2022 Medicaid [id number] 2022 Medicare [id number] 1955 Unknown [id number] 1955 Unknown [id number] 1955 Unknown [id number] 1955 Unknown [id number] Social History Date Type Detail Facility Start: 12-30-2023 Tobacco smoking status NHIS Never sm oked tobacco [facility] Start: 12-30-2023 Tobacco use and exposure Smoke less tobacco non-user [facility] Start: 12-30-2023 End: 01-04-2025 Alcoholic beverage intake Lifetime non-drinker (finding) [facility] Start: 12-24-2023 End: 07-06-2024 [facility] of Social [facility] Start: 12-24-2023 End: 07-06-2024 Social connection and isolation panel [facility] Frequency of Communi cation with Friends and Family Not on file [facility] Do you belong to any clubs or organizations such as adventist groups, unions, fraternal or athletic groups, or school groups? No [facility] Are you now , , , , never or living with a partner? Never [facility] How often to you hav e a drink containing alcohol? Never [facility] (I/We) worried wheth er (my/our) food would run out before (I/we) got money to buy more. Never true [facility] Start: 12-30-2023 Alcohol Comment no caffine [facility] Start: 1955 Sex assigned at Not on file [facility] History of Present illness Narrative 01-04-[address], VALERIE - 01/04/2025 1:[address] NP - 01/04/2025 7:[address] NP - 01/04/2025 7:[address] NP - 01/04/2025 7:27 AM EDT Note Date & Type Note Facility 01-04-2025 History of Presen t illness Narrative Images from the original note were not included. Daniel Johnson is a 69 y.o. male presents with chief complaint of Hypertension HPI: Hypertension This is a chronic problem. The current episode started more than 1 year ago. The problem is unchanged. The problem is controlled. Pertinent negatives include no chest pain, headaches, orthopnea, peripheral edema or shortness of breath. There are no associated agents to hypertension. Risk factors for coronary artery disease include dyslipidemia. Past treatments include angiotensin blockers and diuretics. There is no history of CAD/NY, heart failure, PVD or retinopathy. Identifiable causes of hypertension include a thyroid problem. Thyroid Problem Presents for follow-up visit. Symptoms include tremors. Patient reports no anxiety, cold intolerance, constipation, depressed mood, diarrhea, fatigue, heat intolerance, hoarse voice, weight gain or weight loss. The symptoms have been stable. There is no history of heart failure. SUBJECTIVE: MEDICATIONS: Current Outpatient Medications Medication Instructions levothyroxine (SYNTHROID, LEVOXYL) 50 mcg, Oral, Daily before breakfast meloxicam (MOBIC) 15 mg, Oral, Daily PRN pantoprazole (PROTONIX) 40 mg, Oral, Daily PRN pravastatin (PRAVACHOL) 20 mg, Oral, Nightly valsartan-hydroCHLOROthiazide (Diovan-HCT) 160-12.5 MG tablet 1 tablet, Oral, Daily ALLERGIES: Allergies Allergen Reactions Milk-Related Compounds GI intolerance Dairy products-nausea, vomiting, and diarrhea Other REVIEW OF SYMPTOMS: Review of Systems Constitutional: Negative for activity change, appetite change, fatigue, unexpected weight change, weight gain and weight loss. HENT: Negative for ear pain, hoarse voice, nosebleeds, sneezing, trouble swallowing and voice change. Eyes: Negative for pain, discharge and visual disturbance. Respiratory: Negative for apnea, chest tightness, shortness of breath and wheezing. Cardiovascular: Negative for chest pain, orthopnea and leg swelling. Gastrointestinal: Negative for abdominal distention, blood in stool, constipation and diarrhea. Genitourinary: Negative for decreased urine volume, difficulty urinating, dysuria and hematuria. Skin: Negative for color change. Neurological: Positive for tremors. Negative for dizziness, seizures and headaches. Psychiatric/Behavioral: Negative for agitation, decreased concentration, hallucinations, self-injury and suicidal ideas. The patient is not nervous/anxious. Hematological: Negative for adenopathy. Does not bruise/bleed easily. Endocrine: Negative for cold intolerance, heat intolerance, polydipsia and polyuria. Allergic/Immunologic: Negative for environmental allergies and food allergies. PAST MEDICAL HISTORY History reviewed. No pertinent past medical history. Past Surgical History: Procedure Laterality Date ANTERIOR CRUCIATE LIGAMENT REPAIR right knee family history includes Lung cancer in his father and mother. OBJECTIVE: Visit Vitals BP 108/76 (BP Location: Left arm, Patient Position: Sitting, BP Cuff Size: Adult long) Pulse 72 Temp 98.1 F (Temporal) Resp 18 Wt 170 lb 3.2 oz SpO2 97% BMI 24.42 kg/m Smoking Status Never BSA 1.95 m Physical Exam Vitals and nursing note reviewed. Constitutional: Appearance: Normal appearance. HENT: Head: Normocephalic. Right Ear: External ear normal. Left Ear: External ear normal. Nose: Nose normal. Mouth/Throat: Mouth: Mucous membranes are moist. Pharynx: Oropharynx is clear. Eyes: Extraocular Movements: Extraocular movements intact. Conjunctiva/sclera: Conjunctivae normal. Neck: Vascular: No carotid bruit. Cardiovascular: Rate and Rhythm: Normal rate and regular rhythm. Pulses: Normal pulses. Heart sounds: Normal heart sounds. Pulmonary: Effort: Pulmonary effort is normal. Breath sounds: Normal breath sounds. No wheezing or rhonchi. Abdominal: General: Bowel sounds are normal. Palpations: Abdomen is soft. Musculoskeletal: Cervical back: Neck supple. Right lower leg: No edema. Left lower leg: No edema. Comments: Thorax deformity Skin: General: Skin is warm and dry. Capillary Refill: Capillary refill takes 2 to 3 seconds. Neurological: General: No focal deficit present. Mental Status: He is alert. Psychiatric: Mood and Affect: Mood normal. Behavior: Behavior normal. Thought Content: Thought content normal. Judgment: Judgment normal. ASSESSMENT AND PLAN: No follow-ups on file. Problem List Items Addressed This Visit Essential hypertension, benign (CMS/HCC) - Primary Please check blood pressure daily and record DASH diet Limit caffeine Take medication as directed Contact office if chest pain, pressure, dizziness, shortness of breath, swelling legs Recommend slow position changes Current meds; valsartan/hydrochlorothiazide Relevant Orders Comprehensive metabolic panel Urinalysis with reflex microscopic (clean catch) Microalbumin / creatinine, urine ratio Gastroesophageal reflux disease without esophagitis Recommendations: freq small meals, nothing to eat or drink at least 2 hours prior to bed, limit caffeine, alcohol, as well as spicy foods Meds to limit or avoid if possible: NSAIDS Elevate HOB if possible Current med; pantoprazole Can try to take every other day if tolerates Relevant Orders CBC and differential Mixed hyperlipidemia (CMS/HCC) Continue statin therapy Check labs yearly and prn dose changes Relevant Medications pravastatin (Pravachol) 20 MG tablet Other Relevant Orders Comprehensive metabolic panel Lipid panel Primary hypothyroidism (CMS/HCC) Current meds: levothyroxine Check labs yearly and prn dose changes or changes in sxs Relevant Orders Comprehensive metabolic panel TSH T4, free T3, free Other Visit Diagnoses Essential (primary) hypertension (CMS/HCC) Relevant Medications valsartan-hydroCHLOROthiazide (Diovan-HCT) 160-12.5 MG tablet Essential hypertension (CMS/HCC) Relevant Medications valsartan-hydroCHLOROthiazide (Diovan-HCT) 160-12.5 MG tablet Hypothyroidism, unspecified Hypothyroidism (CMS/HCC) Pain in left knee Relevant Medications meloxicam (Mobic) 15 MG tablet Pain in unspecified knee Relevant Medications meloxicam (Mobic) 15 MG tablet Associated Problem(s): Mixed hyperlipidemia (CMS/HCC) Continue statin therapy Check labs yearly and prn dose changes Associated Problem(s): Primary hypothyroidism (CMS/HCC) Current meds: levothyroxine Check labs yearly and prn dose changes or changes in sxs Associated Problem(s): Gastroesophageal reflux disease without esophagitis Recommendations: freq small meals, nothing to eat or drink at least 2 hours prior to bed, limit caffeine, alcohol, as well as spicy foods Meds to limit or avoid if possible: NSAIDS Elevate HOB if possible Current med; pantoprazole Can try to take every other day if tolerates Associated Problem(s): Essential hypertension, benign (CMS/HCC) Please check blood pressure daily and record DASH diet Limit caffeine Take medication as directed Contact office if chest pain, pressure, dizziness, shortness of breath, swelling legs Recommend slow position changes Current meds; valsartan/hydrochlorothiazide documented in this encounter [facility] Healthcare Instructions 01-04-2025 Patient Instructions Note Date & Type Note Facility 01-04-[address] NP - 01/04/2025 1:40 PM EDT No med dose changes documented in this encounter [facility] History of Present illness Narrative 07-06-[address] NP - 07/06/2024 2:53 PM ROLAND QUINN - 07/06/2024 2:[address] NP - 07/06/2024 2:[address] NP - 07/06/2024 7:24 AM EST Note Date & Type Note Facility 07-06-2024 History of Presen t illness Narrative Associated Problem(s): Mixed hyperlipidemia (CMS/HCC) Continue statin Pt is curious about any vitamin deficiencies he might have Images from the original note were not included. Daniel Johnson is a 68 y.o. male presents with chief complaint of Medicare Annual Wellness Visit Initial HPI: Diet: variety Activity: uses eliptical not daily Mental Health Concerns: none Falls in the last year: none Still driving:yes Do you pay your bills:yes Any hearing problems: none Any Vision problems: wear glasses, scheduled 10/13 Any Hospitalizations in the last year: no Specialist: Urologist: Gregorio, Eye: [facility], HCPOA/Living Will: none Concerns: none Hypertension This is a chronic problem. The current episode started more than 1 year ago. The problem is unchanged. The problem is controlled. Pertinent negatives include no chest pain, headaches, malaise/fatigue, palpitations, peripheral edema or shortness of breath. There are no associated agents to hypertension. Risk factors for coronary artery disease include dyslipidemia and male gender. Past treatments include angiotensin blockers, calcium channel blockers and diuretics. The current treatment provides significant improvement. There are no compliance problems. There is no history of CAD/NY or left ventricular hypertrophy. Identifiable causes of hypertension include a thyroid problem. GERD He reports no abdominal pain, no chest pain, no coughing, no dysphagia, no early satiety, no heartburn, no hoarse voice, no sore throat, no tooth decay, no water brash or no wheezing. This is a chronic problem. The problem occurs rarely. The problem has been unchanged. Pertinent negatives include no fatigue or weight loss. He has tried a PPI for the symptoms. The treatment provided significant relief. Thyroid Problem Presents for follow-up visit. Symptoms include tremors. Patient reports no anxiety, cold intolerance, constipation, depressed mood, diarrhea, fatigue, hair loss, heat intolerance, hoarse voice, leg swelling, menstrual problem, palpitations, weight gain or weight loss. The symptoms have been stable. SUBJECTIVE: MEDICATIONS: Current Outpatient Medications Medication Instructions levothyroxine (SYNTHROID, LEVOXYL) 50 mcg, Oral, Daily before breakfast meloxicam (MOBIC) 15 mg, Daily pantoprazole (PROTONIX) 40 mg, Oral, Daily PRN pravastatin (PRAVACHOL) 20 mg, Oral, Nightly valsartan-hydroCHLOROthiazide (Diovan-HCT) 160-12.5 MG tablet 1 tablet, Oral, Daily ALLERGIES: Allergies Allergen Reactions Milk-Related Compounds GI intolerance Dairy products-nausea, vomiting, and diarrhea Other REVIEW OF SYMPTOMS: Review of Systems Constitutional: Negative for activity change, appetite change, fatigue, malaise/fatigue, unexpected weight change, weight gain and weight loss. HENT: Negative for ear pain, hoarse voice, nosebleeds, sneezing, sore throat, trouble swallowing and voice change. Eyes: Negative for pain, discharge and visual disturbance. Respiratory: Negative for apnea, cough, chest tightness, shortness of breath and wheezing. Cardiovascular: Negative for chest pain, palpitations and leg swelling. Gastrointestinal: Negative for abdominal distention, abdominal pain, blood in stool, constipation, diarrhea, dysphagia and heartburn. Genitourinary: Negative for decreased urine volume, difficulty urinating, dysuria, hematuria and menstrual problem. Skin: Negative for color change. Neurological: Positive for tremors. Negative for dizziness, seizures and headaches. Psychiatric/Behavioral: Negative for agitation, decreased concentration, hallucinations, self-injury and suicidal ideas. The patient is not nervous/anxious. Hematological: Negative for adenopathy. Does not bruise/bleed easily. Endocrine: Negative for cold intolerance, heat intolerance, polydipsia and polyuria. Allergic/Immunologic: Negative for environmental allergies and food allergies. PAST MEDICAL HISTORY History reviewed. No pertinent past medical history. Past Surgical History: Procedure Laterality Date ANTERIOR CRUCIATE LIGAMENT REPAIR right knee family history includes Lung cancer in his father and mother. OBJECTIVE: Visit Vitals BP 102/80 (BP Location: Left arm, Patient Position: Sitting, BP Cuff Size: Adult long) Pulse 64 Temp 98.5 F (Temporal) Resp 18 Ht 5' 10 Wt 175 lb SpO2 96% BMI 25.11 kg/m Smoking Status Never BSA 1.98 m Physical Exam Vitals and nursing note reviewed. Constitutional: Appearance: Normal appearance. HENT: Head: Normocephalic. Right Ear: External ear normal. Left Ear: External ear normal. Nose: Nose normal. Mouth/Throat: Mouth: Mucous membranes are moist. Pharynx: Oropharynx is clear. Eyes: Extraocular Movements: Extraocular movements intact. Conjunctiva/sclera: Conjunctivae normal. Neck: Vascular: No carotid bruit. Cardiovascular: Rate and Rhythm: Normal rate and regular rhythm. Pulses: Normal pulses. Heart sounds: Normal heart sounds. Pulmonary: Effort: Pulmonary effort is normal. Breath sounds: Normal breath sounds. No wheezing or rales. Abdominal: General: Bowel sounds are normal. Palpations: Abdomen is soft. Musculoskeletal: Cervical back: Neck supple. Right lower leg: No edema. Left lower leg: No edema. Comments: Curvature of spine noted Lymphadenopathy: Cervical: No cervical adenopathy. Skin: General: Skin is warm and dry. Capillary Refill: Capillary refill takes 2 to 3 seconds. Neurological: General: No focal deficit present. Mental Status: He is alert. Comments: Tremor noted, and unchanged Psychiatric: Mood and Affect: Mood normal. Behavior: Behavior normal. Thought Content: Thought content normal. Judgment: Judgment normal. ASSESSMENT AND PLAN: Follow up in about 6 months (around 01/03/2025) for Recheck. Problem List Items Addressed This Visit Elevated PSA Continue with Urology Essential hypertension, benign (CMS/HCC) Please check blood pressure daily and record DASH diet Limit caffeine Take medication as directed Contact office if chest pain, pressure, dizziness, shortness of breath, swelling legs Recommend slow position changes Gastroesophageal reflux disease without esophagitis Recommendations: freq small meals, nothing to eat or drink at least 2 hours prior to bed, limit caffeine, alcohol, as well as spicy foods Meds to limit or avoid if possible: NSAIDS Elevate HOB if possible Continue PPI Relevant Medications pantoprazole (ProtoNix) 40 MG EC tablet Mixed hyperlipidemia (CMS/HCC) Continue statin Relevant Medications pravastatin (Pravachol) 20 MG tablet Primary hypothyroidism ([facility]/HCC) Has noted some sl fatigue, nothing acute, I did offer to order thyroid labs, he decline, however if he changes his mind he can contact the office. Continue with thyroid medications and periodic lab monitoring Encounter for subsequent annual wellness visit (AWV) in Medicare patient - Primary Reviewed Ht/Wt/BMI Recommend eye exam yearly Recommend dental exams twice a year Balance work/leisure activities Exercises is recommended most days of the week (appropriate as chronic conditions allow) Follow up yearly and prn Hand out on HCPOA and Living will Other Visit Diagnoses Hypothyroidism, unspecified (CMS/HCC) Relevant Medications levothyroxine (Synthroid, Levoxyl) 50 MCG tablet Hypothyroidism (CMS/HCC) Relevant Medications levothyroxine (Synthroid, Levoxyl) 50 MCG tablet Essential (primary) hypertension (CMS/HCC) Relevant Medications valsartan-hydroCHLOROthiazide (Diovan-HCT) 160-12.5 MG tablet Essential hypertension (CMS/HCC) Relevant Medications valsartan-hydroCHLOROthiazide (Diovan-HCT) 160-12.5 MG tablet '[ Associated Problem(s): Encounter for subsequent annual wellness visit (AWV) in Medicare patient Reviewed Ht/Wt/BMI Recommend eye exam yearly Recommend dental exams twice a year Balance work/leisure activities Exercises is recommended most days of the week (appropriate as chronic conditions allow) Follow up yearly and prn Hand out on HCPOA and Living will Associated Problem(s): Primary hypothyroidism (CMS/HCC) Has noted some sl fatigue, nothing acute, I did offer to order thyroid labs, he decline, however if he changes his mind he can contact the office. Continue with thyroid medications and periodic lab monitoring Associated Problem(s): Elevated PSA Continue with Urology Associated Problem(s): Gastroesophageal reflux disease without esophagitis Recommendations: freq small meals, nothing to eat or drink at least 2 hours prior to bed, limit caffeine, alcohol, as well as spicy foods Meds to limit or avoid if possible: NSAIDS Elevate HOB if possible Continue PPI Associated Problem(s): Essential hypertension, benign (CMS/HCC) Please check blood pressure daily and record DASH diet Limit caffeine Take medication as directed Contact office if chest pain, pressure, dizziness, shortness of breath, swelling legs Recommend slow position changes documented in this encounter [facility] Instructions 07-06-2024 Patient Instructions Note Date & Type Note Facility 07-06-[address] NP - 07/06/2024 2:20 PM EST No changes in meds or doses Follow 6 months for recheck documented in this encounter [facility] Healthcare Evaluation note Note Date & Type Note Facility Evaluation note Diagnosis Essential hypertension, benign (CMS/HCC)- Primary Essential hypertension, benign Mixed hyperlipidemia (CMS/HCC) Mixed hyperlipidemia Primary hypothyroidism (CMS/HCC) Unspecified hypothyroidism Gastroesophageal reflux disease without esophagitis Esophageal reflux Colon cancer screening Special screening for malignant neoplasms, colon Hypothyroidism, unspecified (CMS/HCC) Hypothyroidism (CMS/HCC) Unspecified hypothyroidism Pain in left knee Pain in joint, lower leg Essential (primary) hypertension (CMS/HCC) Unspecified essential hypertension Essential hypertension (CMS/HCC) Unspecified essential hypertension Encounter for subsequent annual wellness visit (AWV) in Medicare patient- Primary Essential hypertension, benign (CMS/HCC) Essential hypertension, benign Gastroesophageal reflux disease without esophagitis Esophageal reflux Elevated PSA Elevated prostate specific antigen (PSA) Primary hypothyroidism (CMS/HCC) Unspecified hypothyroidism Mixed hyperlipidemia (CMS/HCC) Mixed hyperlipidemia Hypothyroidism, unspecified (CMS/HCC) Hypothyroidism (CMS/HCC) Unspecified hypothyroidism Essential (primary) hypertension (CMS/HCC) Unspecified essential hypertension Essential hypertension (CMS/HCC) Unspecified essential hypertension documented in this encounter [facility] Healthcare Evaluation note Note Date & Type Note Facility Evaluation note Diagnosis Essential hypertension, benign (CMS/HCC)- Primary Essential hypertension, benign Mixed hyperlipidemia (CMS/HCC) Mixed hyperlipidemia Primary hypothyroidism (CMS/HCC) Unspecified hypothyroidism Gastroesophageal reflux disease without esophagitis Esophageal reflux Colon cancer screening Special screening for malignant neoplasms, colon Hypothyroidism, unspecified (CMS/HCC) Hypothyroidism (CMS/HCC) Unspecified hypothyroidism Pain in left knee Pain in joint, lower leg Essential (primary) hypertension (CMS/HCC) Unspecified essential hypertension Essential hypertension (CMS/HCC) Unspecified essential hypertension Encounter for subsequent annual wellness visit (AWV) in Medicare patient- Primary Essential hypertension, benign (CMS/HCC) Essential hypertension, benign Gastroesophageal reflux disease without esophagitis Esophageal reflux Elevated PSA Elevated prostate specific antigen (PSA) Primary hypothyroidism (CMS/HCC) Unspecified hypothyroidism Mixed hyperlipidemia (CMS/HCC) Mixed hyperlipidemia Hypothyroidism, unspecified (CMS/HCC) Hypothyroidism (CMS/HCC) Unspecified hypothyroidism Essential (primary) hypertension (CMS/HCC) Unspecified essential hypertension Essential hypertension (CMS/HCC) Unspecified essential hypertension Pain in left knee Pain in unspecified knee documented in this encounter [facility] Healthcare Evaluation note Note Date & Type Note Facility Evaluation note Diagnosis Mixed hyperlipidemia (CMS/HCC) Mixed hyperlipidemia Gastroesophageal reflux disease without esophagitis Esophageal reflux documented in this encounter [facility] Healthcare Evaluation note Note Date & Type Note Facility Evaluation note Diagnosis Essential hypertension, benign (CMS/HCC)- Primary Essential hypertension, benign Mixed hyperlipidemia (CMS/HCC) Mixed hyperlipidemia Primary hypothyroidism (CMS/HCC) Unspecified hypothyroidism Gastroesophageal reflux disease without esophagitis Esophageal reflux Colon cancer screening Special screening for malignant neoplasms, colon Hypothyroidism, unspecified Hypothyroidism (CMS/HCC) Unspecified hypothyroidism Pain in left knee Pain in joint, lower leg Essential (primary) hypertension (CMS/HCC) Unspecified essential hypertension Essential hypertension (CMS/HCC) Unspecified essential hypertension Encounter for subsequent annual wellness visit (AWV) in Medicare patient- Primary Essential hypertension, benign (CMS/HCC) Essential hypertension, benign Gastroesophageal reflux disease without esophagitis Esophageal reflux Elevated PSA Elevated prostate specific antigen (PSA) Primary hypothyroidism (CMS/HCC) Unspecified hypothyroidism Mixed hyperlipidemia (CMS/HCC) Mixed hyperlipidemia Hypothyroidism, unspecified Hypothyroidism (CMS/HCC) Unspecified hypothyroidism Essential (primary) hypertension (CMS/HCC) Unspecified essential hypertension Essential hypertension (CMS/HCC) Unspecified essential hypertension Pain in left knee Pain in unspecified knee documented in this encounter [facility] Healthcare Evaluation note Note Date & Type Note Facility Evaluation note Diagnosis Essential hypertension, benign (CMS/HCC)- Primary Essential hypertension, benign Mixed hyperlipidemia (CMS/HCC) Mixed hyperlipidemia Primary hypothyroidism (CMS/HCC) Unspecified hypothyroidism Gastroesophageal reflux disease without esophagitis Esophageal reflux Colon cancer screening Special screening for malignant neoplasms, colon Hypothyroidism, unspecified Hypothyroidism (CMS/HCC) Unspecified hypothyroidism Pain in left knee Pain in joint, lower leg Essential (primary) hypertension (CMS/HCC) Unspecified essential hypertension Essential hypertension (CMS/HCC) Unspecified essential hypertension Encounter for subsequent annual wellness visit (AWV) in Medicare patient- Primary Essential hypertension, benign (CMS/HCC) Essential hypertension, benign Gastroesophageal reflux disease without esophagitis Esophageal reflux Elevated PSA Elevated prostate specific antigen (PSA) Primary hypothyroidism (CMS/HCC) Unspecified hypothyroidism Mixed hyperlipidemia (CMS/HCC) Mixed hyperlipidemia Hypothyroidism, unspecified Hypothyroidism (CMS/HCC) Unspecified hypothyroidism Essential (primary) hypertension (CMS/HCC) Unspecified essential hypertension Essential hypertension (CMS/HCC) Unspecified essential hypertension Hypothyroidism, unspecified Hypothyroidism (CMS/HCC) Unspecified hypothyroidism Essential hypertension, benign (CMS/HCC)- Primary Essential hypertension, benign Gastroesophageal reflux disease without esophagitis Esophageal reflux Primary hypothyroidism (CMS/HCC) Unspecified hypothyroidism Mixed hyperlipidemia (CMS/HCC) Mixed hyperlipidemia documented in this encounter [facility] Evaluation note Note Date & Type Note Facility Evaluation note Diagnosis Essential hypertension, benign (CMS/HCC)- Primary Essential hypertension, benign Mixed hyperlipidemia (CMS/HCC) Mixed hyperlipidemia Primary hypothyroidism (CMS/HCC) Unspecified hypothyroidism Gastroesophageal reflux disease without esophagitis Esophageal reflux Colon cancer screening Special screening for malignant neoplasms, colon Hypothyroidism, unspecified Hypothyroidism (CMS/HCC) Unspecified hypothyroidism Pain in left knee Pain in joint, lower leg Essential (primary) hypertension (CMS/HCC) Unspecified essential hypertension Essential hypertension (CMS/HCC) Unspecified essential hypertension Encounter for subsequent annual wellness visit (AWV) in Medicare patient- Primary Essential hypertension, benign (CMS/HCC) Essential hypertension, benign Gastroesophageal reflux disease without esophagitis Esophageal reflux Elevated PSA Elevated prostate specific antigen (PSA) Primary hypothyroidism (CMS/HCC) Unspecified hypothyroidism Mixed hyperlipidemia (CMS/HCC) Mixed hyperlipidemia Hypothyroidism, unspecified Hypothyroidism (CMS/HCC) Unspecified hypothyroidism Essential (primary) hypertension (CMS/HCC) Unspecified essential hypertension Essential hypertension (CMS/HCC) Unspecified essential hypertension Essential hypertension, benign (CMS/HCC)- Primary Essential hypertension, benign Gastroesophageal reflux disease without esophagitis Esophageal reflux Primary hypothyroidism (CMS/HCC) Unspecified hypothyroidism Mixed hyperlipidemia (CMS/HCC) Mixed hyperlipidemia Essential (primary) hypertension (CMS/HCC) Unspecified essential hypertension Essential hypertension (CMS/HCC) Unspecified essential hypertension Hypothyroidism, unspecified Hypothyroidism (CMS/HCC) Unspecified hypothyroidism Pain in left knee Pain in unspecified knee documented in this encounter [facility] Summary Purpose Family History No Family History Records FoundNo Family History Records Found Advance Directives No Advanced Directives Records FoundNo Advanced Directives Records Found Additional Source Comments (unrecognized sect ion and content) No Status Records FoundNo Status Records Found INFORMATION SOURCE (unrecogn ized section and content) DATE CREATED AUTHOR 11/22/2022 [facility] DATE CREATED AUTHOR AUTHOR'S ORGANIZ ATION 01/05/2025 [facility] Care Teams (unrecognized sec tion and content) Director Of [employer] Relationship Specialty Start Date End Date Azael Skinner MD [address] [place] [phone] PCP - General Family Medicine 01/14/[address] NP [address] [place] [phone] Nurse Practitioner Family Medicine 08/19/[address] NP [address] [place] [phone] Nurse Practitioner Family Medicine 01/14/24 Director Of [employer] Relationship Specialty Start Date End Date Azael Skinner MD [address] [place] [phone] PCP - General Family Medicine 01/14/[address] NP [address] [place] [phone] Nurse Practitioner Family Medicine 08/19/[address] NP [address] [place] [address] Nurse Practitioner Family Medicine 01/14/24 Director Of [employer] Relationship Specialty Start Date End Date Azael Skinner MD [address] [place] [phone] PCP - General Family Medicine 01/14/[address] NP [address] [place] [phone] Nurse Practitioner Family Medicine 08/19/[address] NP [address] [place] [phone] Nurse Practitioner Family Medicine 01/14/24 Director Of [employer] Relationship Specialty Start Date End Date Azael Skinner MD [address] [place] [phone] PCP - General Family Medicine 01/14/[address] NP [address] [place] [phone] Nurse Practitioner Family Medicine 08/19/[address] NP [address] [place] [phone] Nurse Practitioner Family Medicine 01/14/24 Director Of [employer] Relationship Specialty Start Date End Date Azael Skinner MD [address] [place] [phone] PCP - General Family Medicine 01/14/[address] NP [address] [place] [phone] PCP - Obi AR 08/19/[address] NP [address] [place] [phone] Nurse Practitioner Family Medicine 08/19/[address] NP [address] [place] [phone] Nurse Practitioner Family Medicine 01/14/24 Director Of [employer] Relationship Specialty Start Date End Date Azael Skinner MD [address] [place] [phone] PCP - General Family Medicine 01/14/[address] NP [address] [place] [phone] PCP - Obi JON 08/19/[address] NP [address] [place] [phone] Nurse Practitioner Family Medicine 08/19/[address] NP [address] [place] [phone] Nurse Practitioner Family Medicine 01/14/24 Director Of [employer] Relationship Specialty Start Date End Date Azael Skinner MD [address] [place] [phone] PCP - General Family Medicine 01/14/[address] NP [address] [place] [phone] PCP - Obi JON 08/19/[address] NP [address] [place] [phone] Nurse Practitioner Family Medicine 08/19/[address] NP [address] [place] [address] Nurse Practitioner Family Medicine 01/14/24 Reason for Visit (unrecogniz ed section and content) Reason Comments Medicare Annual Wellness Visit Initial Reason Comments Med Refill Reason Comments Hypertension FOR RECORDS PERTAINING TO PATIENTS WHO ARE OR HAVE BEEN ENROLLED IN A CHEMICAL DEPENDENCY/SUBSTANCEABUSE PROGRAM, SOME INFORMATION MAY BE OMITTED. This clinical summary was aggregated from multiple sources. Caution should be exercised in using it in the provision of clinical care. This summary normalizes information from multiple sources, and as a consequence, information in this document may materially change the coding, format and clinical context of patient data. In addition, data may be omitted in some cases. CLINICAL DECISIONS SHOULD BE BASED ON THE PRIMARY CLINICAL RECORDS. [email or web address] provides no warranty or guarantee of the accuracy or completeness of information in this document.
[2025-01-22 11:54] LABS: Bilirubin Urine NEGATIVE (NEGATIVE); Blood Urine NEGATIVE (NEGATIVE); Clarity Urine CLEAR (CLEAR); Color Urine LT. YELLOW (YELLOW); Glucose Urine UA NEGATIVE (NEGATIVE); Ketones Urine NEGATIVE (NEGATIVE); Leukocyte Esterase Urine NEGATIVE (NEGATIVE); Nitrite Urine NEGATIVE (NEGATIVE); Protein Urine NEGATIVE (NEG/TRACE); Specific Gravity Urine <=1.005 (1.005-1.025); Urobilinogen Urine 0.2 EU/dL (0.2-1.0); pH Urine 6.5 (5.0-9.0)
[2025-01-22 11:55] LABS: Urine Microscopic Indicated NO
[2025-01-22 14:35] LABS: Creatinine Urine Random 23.75 mg/dL (20.00-300.00); Microalbumin Urine Random <1.3 mg/dL (<=30.0)
== END 2025-01-22 08:29 | disposition home or self-care (01) ==
LOC: LAB 08:28
PROVIDERS: PCP Nurse Practitioner; Visit Provider Nurse Practitioner
DX: E03.9 Hypothyroidism, unspecified (principal); I10 Essential (primary) hypertension; K21.9 Gastro-esophageal reflux disease without esophagitis; E78.2 Mixed hyperlipidemia
CPT/HCPCS: 81003; 82043; 82570